=== PATIENT | male | born 1950 | race Caucasian/White ===

== ENCOUNTER 2018-01-05 00:13 | Observation (INO) | payer OTHER, MEDICARE, BC ==
[~2018-01-05] VITALS: Ht 177.8 cm; Wt 115.0 kg
[2018-01-05] MEDS ORDERED: normal saline 1000ML IV soln IVB ONE (01:45)
[2018-01-05 02:00] LABS: CLARITY,URINE Clear (Clear); COLOR,URINE Yellow (Yellow); GLUCOSE, URINE Negative (Neg); KETONES,URINE Negative (Neg); LEUKOCYTE ESTERASE ,URINE Negative (Neg); NITRITES, URINE Negative (Neg); OCCULT BLOOD,URINE Negative (Neg); PROTEIN,URINE Negative (Neg)
[2018-01-05 02:02] LABS: UA COLLECTION TYPE CLN CATCH MIDSTREAM
[2018-01-05] MEDS ORDERED: DABI150C PO (02:04)
[2018-01-05] MEDS ORDERED: METF500T PO (02:04)
[2018-01-05 02:07] LABS: BASOPHILS % (AUTO) 0.3 % (0-1); EOSINOPHILS # (AUTO) 0.1 X10'3 (0-0.9); EOSINOPHILS % (AUTO) 1.4 % (0-6); HEMATOCRIT 37.4 % (42.0-52.0); HEMOGLOBIN 12.5 g/dl (14.0-17.9); LYMPHOCYTES # (AUTO) 1.1 X10'3 (1.1-4.8); LYMPHOCYTES % (AUTO) 15.2 % (21-51); MEAN CORPUSCULAR HEMOGLOBIN 31.7 PG (27.0-31.0); MEAN CORPUSCULAR HGB CONC 33.4 % (33.0-36.5); MEAN CORPUSCULAR VOLUME 94.9 FL (78-98); MEAN PLATELET VOLUME 7.1 FL (7.4-10.4); MONOCYTES # (AUTO) 0.9 X10'3 (0-0.9); NEUTROPHILS # (AUTO) 5.1 X10'3 (1.8-7.7); NEUTROPHILS % (AUTO) 70.1 % (42-75); PLATELET COUNT 180 X10'3 (140-440); RED BLOOD COUNT 3.94 X10'6 (4.70-6.10); RED CELL DISTRIBUTION WIDTH 14.1 % (11.5-14.5); WHITE BLOOD COUNT 7.3 X10'3 (4.5-11.0)
[2018-01-05] MEDS ORDERED: POTA20TA19 PO (02:08)
[2018-01-05 02:09] LABS: URINE AMPHETAMINE SCREEN NEGATIVE (Neg); URINE BARBITUATE SCREEN NEGATIVE (Neg); URINE BENZODIAZEPINES SCREEN POSITIVE (Neg); URINE CANNABINOID SCREEN NEGATIVE (Neg); URINE COCAINE SCREEN NEGATIVE (Neg); URINE METHADONE SCREEN NEGATIVE (Neg); URINE OPIATE SCREEN POSITIVE (Neg); URINE PHENCYCLIDINE SCREEN NEGATIVE (Neg)
[2018-01-05] MEDS ORDERED: SULF500T59 PO (02:09)
[2018-01-05] MEDS ORDERED: OMEP40CA37 PO (02:10)
[2018-01-05 02:11] LABS: ABG BASE EXCESS 1.8 mmol/L (-2.0-3.0); ABG HCO3 27.7 mmol/L (22.0-26.0); ABG PCO2 (T) 48.2 mmHg (35.0-48.0); ABG PH (T) 7.376 (7.350-7.450); ABG PO2 (T) 81.1 mmHg (83-108); ALLEN'S TEST Positive; FCOHb 1.2 % (0.5-1.5); FLOW 2 L/min; FMetHb 0.3 % (0.3-1.12); FO2Hb 93.6 % (94-100); PATIENT TEMPERATURE 36.9; RESPIRATORY RATE (OBSERVED) 14 b/min; TOTAL HEMOGLOBIN 13.2 G/dl (14.0-18.0)
[2018-01-05] MEDS ORDERED: BUPR150T8 PO (02:11)
[2018-01-05] MEDS ORDERED: GABA-532 PO (02:11)
[2018-01-05] MEDS ORDERED: CARV25TA2 PO (02:12)
[2018-01-05] MEDS ORDERED: SPIR25TA3 PO (02:13)
[2018-01-05] MEDS ORDERED: ATOR10TA87 PO (02:14)
[2018-01-05] MEDS ORDERED: LOSA50TA3 PO (02:14)
[2018-01-05] MEDS ORDERED: FINA5TAB11 PO (02:15)
[2018-01-05] MEDS ORDERED: ZOLP10TA PO (02:16)
[2018-01-05] MEDS ORDERED: FLO0.4C PO (02:16)
[2018-01-05] MEDS ORDERED: SERT25TA PO (02:17)
[2018-01-05 02:18] LABS: INR 1.2 INR; PARTIAL THROMBOPLASTIN TIME 31 SECONDS (22-32)
[2018-01-05] MEDS ORDERED: SYN0.088T PO (02:19)
[2018-01-05] MEDS ORDERED: VITA400C65 (02:20)
[2018-01-05] MEDS ORDERED: CHOL100046 PO (02:22)
[2018-01-05] MEDS ORDERED: METH500T6 PO (02:25)
[2018-01-05 02:29] LABS: ACETAMINOPHEN < 2.0 UG/ML (10-30); ALANINE AMINOTRANSFERASE 39 U/L (12-78); ALBUMIN 3.6 G/DL (3.4-5.0); ALKALINE PHOSPHATASE 64 IU/L (46-116); ANION GAP 6 (8-16); ASPARTATE AMINO TRANSFERASE 41 U/L (10-37); BILIRUBIN,TOTAL 0.4 MG/DL (0.1-1.0); BLOOD UREA NITROGEN 21 MG/DL (7-18); BUN/CREATININE RATIO 17.6 (5.4-32.0); CHLORIDE 106 MMOL/L (99-107); CREATININE 1.19 MG/DL (0.60-1.10); ETHANOL < 0.010 GM/DL (0.0-0.010); GLUCOSE 117 MG/DL (70-104); MAGNESIUM 1.7 MG/DL (1.5-2.4); POTASSIUM 4.8 MMOL/L (3.5-5.1); SODIUM 142 MMOL/L (135-145); TOTAL PROTEIN 7.1 G/DL (6.4-8.2); eGFR 61 ML/MIN
[2018-01-05] MEDS ORDERED: HYDR-565 PO (02:30)
[2018-01-05] MEDS ORDERED: ondansetron/PF 4mg/2ml inj IV PRN (04:20)
[2018-01-05] MEDS ORDERED: acetaminophen 325mg tablet PO PRN ×2 (04:20)
[2018-01-05 05:12] LABS: CREATININE 1.02 MG/DL (0.60-1.10); POTASSIUM 4.4 MMOL/L (3.5-5.1); eGFR 73 ML/MIN
[2018-01-05] MEDS: levoTHYROXINE 88mcg tablet PO SCH (07:58)
[2018-01-05] MEDS: gabapentin 300mg capsule PO SCH ×3 (07:59→20:32)
[2018-01-05] MEDS: pantoprazole 40mg Tablet.DR PO SCH (07:59)
[2018-01-05] MEDS: sertraline 50mg tablet PO SCH (07:59)
[2018-01-05] MEDS: carVEDilol 12.5mg tablet PO SCH ×2 (08:00→19:39)
[2018-01-05] MEDS: furosemide 10 MG/1 ML 10ml inj IV SCH (08:01)
[2018-01-05] MEDS: dabigatran 150mg capsule PO SCH ×2 (09:08→19:41)
[2018-01-05] MEDS: spironolactone 25 MG tablet PO SCH ×2 (09:08→19:40)
[2018-01-05] MEDS: HYDROcodone/acetaminophen 5mg/325mg tablet PO PRN ×2 (13:03→19:40)
[2018-01-05 18:48] VITALS: BP 156/67
[2018-01-05] MEDS: sulfaSALAZINE 500 MG tablet PO SCH (19:40)
[2018-01-05] MEDS: losartan 50mg tablet PO SCH (20:33)
[2018-01-05] MEDS: atorvastatin 10mg tablet PO SCH (20:33)
[2018-01-05] MEDS: tamsulosin 0.4mg capsule PO SCH (20:33)
[2018-01-05] MEDS: finasteride 5mg tablet PO SCH (20:34)
[2018-01-05] MEDS ORDERED: metFORMIN 500mg tablet PO SCH (21:00)
[2018-01-05 22:04] VITALS: BP 154/79
[2018-01-06 06:10] LABS: BASOPHILS % (AUTO) 0.5 % (0-1); EOSINOPHILS # (AUTO) 0.1 X10'3 (0-0.9); EOSINOPHILS % (AUTO) 2.5 % (0-6); HEMATOCRIT 33.4 % (42.0-52.0); HEMOGLOBIN 11.8 g/dl (14.0-17.9); LYMPHOCYTES # (AUTO) 1.2 X10'3 (1.1-4.8); MEAN CORPUSCULAR HEMOGLOBIN 32.9 PG (27.0-31.0); MEAN CORPUSCULAR HGB CONC 35.5 % (33.0-36.5); MEAN CORPUSCULAR VOLUME 92.8 FL (78-98); MEAN PLATELET VOLUME 6.8 FL (7.4-10.4); MONOCYTES # (AUTO) 0.8 X10'3 (0-0.9); MONOCYTES % (AUTO) 15.4 % (2-12); NEUTROPHILS # (AUTO) 3.2 X10'3 (1.8-7.7); NEUTROPHILS % (AUTO) 59.6 % (42-75); PLATELET COUNT 143 X10'3 (140-440); RED BLOOD COUNT 3.59 X10'6 (4.70-6.10); RED CELL DISTRIBUTION WIDTH 14.2 % (11.5-14.5); WHITE BLOOD COUNT 5.4 X10'3 (4.5-11.0)
[2018-01-06 06:21] LABS: ALBUMIN 3.2 G/DL (3.4-5.0); ANION GAP 8 (8-16); BLOOD UREA NITROGEN 18 MG/DL (7-18); BUN/CREATININE RATIO 17.3 (5.4-32.0); CALCIUM 9.2 MG/DL (8.5-10.1); CHLORIDE 105 MMOL/L (99-107); CREATININE 1.04 MG/DL (0.60-1.10); GLUCOSE 120 MG/DL (70-104); POTASSIUM 3.7 MMOL/L (3.5-5.1); SODIUM 143 MMOL/L (135-145); TOTAL CARBON DIOXIDE 30.4 MMOL/L (24-32); eGFR 71 ML/MIN
[2018-01-06 07:00] VITALS: BP 133/72
[2018-01-06] MEDS: pantoprazole 40mg Tablet.DR PO SCH (07:23)
[2018-01-06] MEDS: levoTHYROXINE 88mcg tablet PO SCH (07:23)
[2018-01-06] MEDS: HYDROcodone/acetaminophen 5mg/325mg tablet PO PRN ×2 (07:25→12:24)
[2018-01-06] MEDS: sertraline 50mg tablet PO SCH (09:10)
[2018-01-06] MEDS: spironolactone 25 MG tablet PO SCH ×2 (09:10→20:01)
[2018-01-06] MEDS: dabigatran 150mg capsule PO SCH ×2 (09:10→20:00)
[2018-01-06] MEDS: sulfaSALAZINE 500 MG tablet PO SCH ×2 (09:10→20:01)
[2018-01-06] MEDS: carVEDilol 12.5mg tablet PO SCH ×2 (09:10→20:01)
[2018-01-06] MEDS: gabapentin 300mg capsule PO SCH ×3 (09:10→20:00)
[2018-01-06] MEDS: furosemide 10 MG/1 ML 10ml inj IV SCH (09:11)
[2018-01-06 11:00] VITALS: BP 149/79
[2018-01-06] MEDS ORDERED: glucagon, human recombinant 1mg kit SUBCUT PRN (15:35)
[2018-01-06] MEDS ORDERED: dextrose 50%-water 50ml dispensing syringe IV PRN ×2 (15:35)
[2018-01-06] MEDS ORDERED: insulin Lispro (HumaLOG) vial - multi-dose SQ SCH (15:35)
[2018-01-06] MEDS ORDERED: dextrose ORAL solution 15 GM/59 ML bottle PO PRN ×2 (15:35)
[2018-01-06] MEDS ORDERED: MESSAGE TO PHARMACY PO ONE (15:35)
[2018-01-06 18:00] VITALS: BP 153/74
[2018-01-06] MEDS: tamsulosin 0.4mg capsule PO SCH (20:00)
[2018-01-06] MEDS: finasteride 5mg tablet PO SCH (20:00)
[2018-01-06] MEDS: atorvastatin 10mg tablet PO SCH (20:00)
[2018-01-06] MEDS: losartan 50mg tablet PO SCH ×2 (20:04→20:33)
[2018-01-06] MEDS ORDERED: insulin glargine (Lantus) pen - multi-dose SQ SCH (21:00)
[2018-01-06 22:00] VITALS: BP 190/99
[2018-01-07 02:41] VITALS: BP 155/78
[2018-01-07 06:00] VITALS: BP 148/81
[2018-01-07 07:03] LABS: BASOPHILS % (AUTO) 0.1 % (0-1); EOSINOPHILS # (AUTO) 0.1 X10'3 (0-0.9); EOSINOPHILS % (AUTO) 0.8 % (0-6); HEMATOCRIT 38.4 % (42.0-52.0); HEMOGLOBIN 13.3 g/dl (14.0-17.9); LYMPHOCYTES # (AUTO) 1.2 X10'3 (1.1-4.8); LYMPHOCYTES % (AUTO) 13.8 % (21-51); MEAN CORPUSCULAR HGB CONC 34.8 % (33.0-36.5); MEAN PLATELET VOLUME 7.3 FL (7.4-10.4); MONOCYTES % (AUTO) 11.2 % (2-12); NEUTROPHILS # (AUTO) 6.4 X10'3 (1.8-7.7); NEUTROPHILS % (AUTO) 74.1 % (42-75); PLATELET COUNT 160 X10'3 (140-440); RED BLOOD COUNT 4.04 X10'6 (4.70-6.10); RED CELL DISTRIBUTION WIDTH 13.8 % (11.5-14.5); WHITE BLOOD COUNT 8.7 X10'3 (4.5-11.0)
[2018-01-07 07:16] LABS: ALBUMIN 3.6 G/DL (3.4-5.0); ANION GAP 11 (8-16); BLOOD UREA NITROGEN 18 MG/DL (7-18); BUN/CREATININE RATIO 15.9 (5.4-32.0); CHLORIDE 105 MMOL/L (99-107); CREATININE 1.13 MG/DL (0.60-1.10); GLUCOSE 133 MG/DL (70-104); POTASSIUM 3.5 MMOL/L (3.5-5.1); SODIUM 143 MMOL/L (135-145); TOTAL CARBON DIOXIDE 27.1 MMOL/L (24-32); eGFR 65 ML/MIN
[2018-01-07] MEDS: pantoprazole 40mg Tablet.DR PO SCH (07:57)
[2018-01-07] MEDS: HYDROcodone/acetaminophen 5mg/325mg tablet PO PRN ×2 (07:57→13:08)
[2018-01-07] MEDS: levoTHYROXINE 88mcg tablet PO SCH (07:57)
[2018-01-07] MEDS: gabapentin 300mg capsule PO SCH ×2 (09:04→13:07)
[2018-01-07] MEDS: sertraline 50mg tablet PO SCH (09:04)
[2018-01-07] MEDS: spironolactone 25 MG tablet PO SCH (09:05)
[2018-01-07] MEDS: sulfaSALAZINE 500 MG tablet PO SCH (09:05)
[2018-01-07] MEDS: dabigatran 150mg capsule PO SCH (09:05)
[2018-01-07] MEDS: carVEDilol 12.5mg tablet PO SCH (09:05)
[2018-01-07] MEDS: furosemide 10 MG/1 ML 10ml inj IV SCH (09:11)
[2018-01-07 10:00] VITALS: BP 150/85
== END 2018-01-07 16:20 | disposition home or self-care (01) ==
LOC: ER 00:14 → ED HOLD 04:18 → EDBEDREQ 18:23 → ORTHO 4S 18:45
PROVIDERS: ADMIT Family Medicine; ATTEND Emergency Medicine
DX: R53.83 Other fatigue (principal); R41.82 Altered mental status, unspecified; M54.5 Low back pain; E11.9 Type 2 diabetes mellitus without complications; E78.5 Hyperlipidemia, unspecified; G47.30 Sleep apnea, unspecified; I10 Essential (primary) hypertension; I48.91 Unspecified atrial fibrillation; M06.9 Rheumatoid arthritis, unspecified; G89.29 Other chronic pain; G93.40 Encephalopathy, unspecified; Z80.8 Family history of malignant neoplasm of other organs or systems; Z79.4 Long term (current) use of insulin
CPT/HCPCS: 36415; 36600; 70450; 71045; 72131; 74176; 80048; 80053; 80305; 80320; 80329; 81003; 82140; 82565; 82803; 82948; 83036; 83735; 83880; 84132; 84443; 84484; 85018; 85025; 85610; 85730; 87070; 93005; 93306; 96374; 96376; 97110; 97116; 97162; 99285; A6255; G0378; J1815; J1940

== ENCOUNTER 2022-06-16 10:39 | Emergency (ER) | payer OTHER, MEDICARE, BC ==
[~2022-06-16] VITALS: Ht 177.8 cm; Wt 104.5 kg
[~2022-06-16 10:39] MED LIST: AMYL1CAP54 PO; ARA20T PO; ATOR20TA PO; BUPR150T8 PO; CARV-50 PO; CHOL100046 PO; CYAN-51 PO; DABI150C PO; FENO145T26 PO; FINA5TAB11 PO; GABA300C PO; HYDR-4353 PO; LEVO100T9 PO; LEVO750T68 PO; LOSA50TA64 PO; PANT40TA54 PO; POTA-207 PO; SERT25TA PO; SPIR25TA5 PO; VITA-134 PO; ZOLP10TA PO
--- NOTE | 2022-06-16 10:45 | NUR ---
DR SQUIRES MADE AWARE PATIENT FALL ON THINNERS WITH NO HEAD STRIKE, PER PAT NOT CONSIDERED A LEVEL 2 TRAUMA ALERT, DEEP SIBLEY MADE AWARE.
[2022-06-16 14:11] LABS: CLARITY,URINE SLIGHTLY CLOUDY (Clear); COLOR,URINE YELLOW (Yellow); GLUCOSE, URINE NEGATIVE (Neg); KETONES,URINE NEGATIVE (Neg); LEUKOCYTE ESTERASE ,URINE NEGATIVE (Neg); NITRITES, URINE NEGATIVE (Neg); OCCULT BLOOD,URINE NEGATIVE (Neg); PH,URINE 5.5 (4.8-8.0); PROTEIN,URINE NEGATIVE (Neg); UROBILINOGEN,URINE 0.2 E.U/dL (0.2-1.0)
[2022-06-16 14:12] LABS: UA COLLECTION TYPE URINAL
[2022-06-16 14:14] LABS: BASOPHILS # (AUTO) 0.1 X10'3 (0-0.2); BASOPHILS % (AUTO) 1.6 % (0-1); EOSINOPHILS # (AUTO) 0.1 X10'3 (0-0.9); EOSINOPHILS % (AUTO) 1.7 % (0-6); HEMATOCRIT 32.6 % (42.0-52.0); HEMOGLOBIN 11.2 g/dl (14.0-17.9); LYMPHOCYTES # (AUTO) 0.8 X10'3 (1.1-4.8); LYMPHOCYTES % (AUTO) 10.3 % (21-51); MEAN CORPUSCULAR HEMOGLOBIN 32.5 PG (27.0-31.0); MEAN CORPUSCULAR HGB CONC 34.2 g/dL (33.0-36.5); MEAN PLATELET VOLUME 7.3 FL (7.4-10.4); MONOCYTES # (AUTO) 0.9 X10'3 (0-0.9); MONOCYTES % (AUTO) 11.8 % (2-12); NEUTROPHILS # (AUTO) 5.8 X10'3 (1.8-7.7); NEUTROPHILS % (AUTO) 74.6 % (42-75); PLATELET COUNT 125 X10'3 (140-440); RED BLOOD COUNT 3.43 X10'6 (4.70-6.10); WHITE BLOOD COUNT 7.7 X10'3 (4.5-11.0)
[2022-06-16 14:16] LABS: HYALINE CASTS >30 /LPF (NEGATIVE); SQUAMOUS EPITHELIAL CELL,UR MANY /LPF (FEW)
[2022-06-16 14:17] LABS: TRANSITIONAL EPI CELLS,URINE FEW /HPF
[2022-06-16 14:18] LABS: CAL OXALATE CRYSTALS 1+ /HPF (NEGATIVE); RBC,URINE 0-2 /HPF (0-2)
[2022-06-16 14:19] LABS: AMORPHOUS URATES 1+; BACTERIA,URINE 1+ /HPF (Neg); WBC,URINE 0-4 /HPF (0-4)
[2022-06-16 14:31] LABS: ALANINE AMINOTRANSFERASE 29 U/L (12-78); ALBUMIN 3.5 G/DL (3.4-5.0); ALBUMIN/GLOBULIN RATIO 1.1 (1.1-1.5); ALKALINE PHOSPHATASE 45 IU/L (46-116); ANION GAP 9 (8-16); ASPARTATE AMINO TRANSFERASE 26 U/L (10-37); BILIRUBIN,TOTAL 0.5 MG/DL (0.1-1.0); BLOOD UREA NITROGEN 26 MG/DL (7-18); BUN/CREATININE RATIO 20.5 (5.4-32.0); CALCIUM 8.8 MG/DL (8.5-10.1); CHLORIDE 109 MMOL/L (99-107); CREATININE 1.27 MG/DL (0.60-1.10); GLUCOSE 104 MG/DL (70-104); POTASSIUM 4.5 MMOL/L (3.5-5.1); SODIUM 145 MMOL/L (135-145); TOTAL CARBON DIOXIDE 27.3 MMOL/L (24-32); TOTAL PROTEIN 6.7 G/DL (6.4-8.2); eGFR 56 ML/MIN
[2022-06-16 14:35] LABS: ETHANOL < 0.010 GM/DL (0.0-0.010)
[2022-06-16] MEDS ORDERED: morphine 4 MG/ML inj SYRINge IV ONE (15:30)
[2022-06-16] MEDS ORDERED: ketorolac trometh. 30mg/ml inj. IV ONE (15:30)
[2022-06-16 15:37] VITALS: BP 145/73
== END 2022-06-16 15:38 | disposition home or self-care (01) ==
LOC: ER 10:40
DX: S50.11XA Contusion of right forearm, initial encounter (principal); S50.311A Abrasion of right elbow, initial encounter; R53.1 Weakness; G89.29 Other chronic pain; M54.9 Dorsalgia, unspecified; E11.9 Type 2 diabetes mellitus without complications; Z88.6 Allergy status to analgesic agent; Z79.899 Other long term (current) drug therapy; Z79.2 Long term (current) use of antibiotics; W18.39XA Other fall on same level, initial encounter; Y93.89 Activity, other specified; Y92.89 Other specified places as the place of occurrence of the external cause; Y99.8 Other external cause status
CPT/HCPCS: 36415; 70450; 71045; 72131; 80053; 80320; 81001; 84484; 85025; 93005; 96374; 96375; 99285; J1885; J2270

== ENCOUNTER → 2023-07-09 | Outpatient (CLI) | payer OTHER ==
[~2023-07-09] MED LIST changes: +CYAN-104 PO; -CYAN-51 PO; -VITA-134 PO; +VITA-288 PO
== END | disposition home or self-care (01) ==
LOC: CARD DIAG 12:17
PROVIDERS: ATTEND Chiropractor
DX: I08.0 Rheumatic disorders of both mitral and aortic valves (principal); I49.3 Ventricular premature depolarization; I48.91 Unspecified atrial fibrillation; R60.9 Edema, unspecified
CPT/HCPCS: 93005; 93308

== ENCOUNTER 2025-05-01 14:18 | Inpatient (IN) | payer OTHER, MEDICARE ==
[~2025-05-01] VITALS: Ht 177.8 cm; Wt 81.8 kg
[~2025-05-01 14:18] MED LIST changes: +ZOLP-679 PO; -ZOLP10TA PO
--- NOTE | 2025-05-01 14:33 | ELECTROCARDIOGRAPH REPORT ---
[facility] Test Date: 2025-05-01 Test Time: 14:31:08 Pat Name: SAMY MURILLO Department: [facility]- Patient ID: [id number] Room: Gender: M Project Coordinator: : 1950 Requested By: KARINA GARLAND Order Number: [id number] Reading MD: Measurements Intervals [place] Rate: 97 P: 0 ND: 0 QRS: 1 QRSD: 94 T: 46 QT: 379 QTc: 482 Interpretive Statements Atrial flutter Inferior infarct, acute (LCx) ST elevation, consider anterior injury Lateral leads are also involved Baseline wander in lead(s) V4 Please click the below link to view image of tracing.
[2025-05-01 14:39] LABS: MEAN PLATELET VOLUME 7.6 FL (7.4-10.4); RED CELL DISTRIBUTION WIDTH 15.7 % (11.5-14.5)
[2025-05-01 15:00] LABS: CREATININE 1.00 MG/DL (0.60-1.10); PRO BRAIN NATRIURETIC PEPTIDE 359 PG/ML (0-450); TOTAL CARBON DIOXIDE 30.2 MMOL/L (24-32); eCRCL 62 ML/MIN; eGFR 73 ML/MIN
--- NOTE | 2025-05-01 15:00 | RADIOLOGY REPORT ---
EXAM: DI CHEST,SINGLE VIEW Indication: CP Technique: Single frontal view of the chest was obtained Comparison: CHEST,SINGLE VIEW on DOS: 06/16/22 FINDINGS: Lines and Tubes: None Lungs: No focal consolidation. Pleura: No effusion. No pneumothorax. Cardiomediastinal contours: Unremarkable Bones: No acute osseous abnormality. IMPRESSION: No acute cardiopulmonary disease.
[2025-05-01 15:54] LABS: EOSINOPHILS % (MANUAL) 1.0 % (0-6); LYMPHOCYTES % (MANUAL) 14.0 % (21-51); MONOCYTES % (MANUAL) 15.0 % (2-12); NEUTROPHILS % (MANUAL) 70.0 % (42-75)
[2025-05-01 15:55] LABS: PLATELET ESTIMATE DECREASED
--- NOTE | 2025-05-01 16:09 | Physician Documentation ---
History of Present Illness ~ Chief Complaint: Chest Pain Stated Complaint: CHEST TIGHTNESS Time Seen by MD: 15:34 Primary Medical Doctor: Dr. Contreras Mode of Arrival: POV HPI This is a 74-year-old male with a past medical history of diabetes mellitus type 2, hypertension and atrial fibrillation presenting with chest pain that started earlier today. He states that happened while he was in bed and suddenly came on. It is substernal and does not radiate. He states that initially was about 8/10 on intensity but has now improved to about a 4/10. Additionally states that he has been very weak over the past couple of days. His daughter states that he has gradually grown weaker and lethargic. Patient was recently hospitalized at [facility] for atrial fibrillation. Medication Reconciliation Allergies: Coded Allergies: cephalexin (Verified Allergy, Unknown, HALLUCINATES, 05/01/25) Scheduled Apixaban (Eliquis), 5 MG PO BID Atorvastatin Calcium (Atorvastatin Calcium), 20 MG PO DAILY Bupropion Hcl (Bupropion Hcl Sr), 1 TAB PO Q12H Carvedilol (Carvedilol), 1 TAB PO Q12H Cholecalciferol (Vitamin D), 1 CAP PO DAILY Cyanocobalamin (Vitamin B-12) (B-12), 1 TAB PO DAILY Finasteride (Finasteride), 1 TAB PO DAILY Gabapentin (Neurontin), 1 CAP PO Q8H Leflunomide (Leflunomide), 1 TAB PO DAILY Levofloxacin (Levofloxacin), 750 MG PO DAILY Levothyroxine Sodium (Levothyroxine Sodium), 100 MCG PO DAILY Losartan Potassium (Losartan Potassium), 50 MG PO DAILY Pantoprazole Sodium (Pantoprazole Sodium), 40 MG PO BID Potassium Chloride* (K-Dur*), 1 TAB PO DAILY Sertraline HCl (Sertraline HCl), 1 TAB PO DAILY Spironolactone (Spironolactone), 25 MG PO DAILY Sucralfate (Sucralfate), 1 TAB PO Q8H Scheduled PRN Zolpidem Tartrate (Ambien), 1 TAB PO HSPRN PRN for sleep Discontinued Medications Atorvastatin Calcium* (Lipitor*), 1 TABLET PO HS, (Reported) Discontinued Reason: Prescription changed Carvedilol (Carvedilol), 25 MG PO BIDBD Discontinued Reason: Prescription changed Dabigatran (PRADAXA capsule), 1 CAP PO Q12H, (Reported) Discontinued Reason: Prescription changed Levofloxacin (Levofloxacin), 750 MG PO DAILY@11 Discontinued Reason: Prescription changed Losartan Potassium (Losartan Potassium), 50 MG PO HS Discontinued Reason: Prescription changed Pantoprazole Sodium (Pantoprazole Sodium), 40 MG PO BID Discontinued Reason: Prescription changed Spironolactone (Spironolactone), 1 TAB PO BID, (Reported) Discontinued Reason: Prescription changed Past Medical History Past Medical History: Diabetes, Chronic Back Pain, Rheumatoid Arthritis Past Surgical History: orthopedic surgeries Alcohol Use: None Drug Use: none Lives In: Home Physical Exam Vital Signs: Temperature: 97.8, Source: Temporal, Heart Rate: 60, Respiratory Rate: 18, BP: 144/77, Pulse Oximetry: 97, Weight: 81.820 Physical Exam I have reviewed the triage vitals. CONST: Well developed and well nourished. In no acute distress HENT: Head Atraumatic EYES: Pupils are equal, round and reactive to light. Normal conjunctiva NECK: Normal range of motion. Supple. CARDIO: Normal rate and regular rhythm. No murmurs, rubs, or gallops. S1, S2. PULM/CHEST: No respiratory distress. Lungs clear to auscultation. No wheeze ABD: Soft and nontender. Nondistended. Bowel sounds normal. No guarding. : Exam deferred MSK: No edema. No deformity. NEURO: Alert and oriented to person, place and time. Moving all extremities SKIN: Warm and dry. PSYCH: Normal mood and affect. Good eye contact. Progress Results/Orders Results/Orders Orders - MARLYS [place] MD Culture Blood (05/01/25 15:56) Page Hospitalist (05/01/25 17:28) Fill Out Med Reconciliation (05/01/25 17:28) Completed Orders - MARLYS [place] MD Lacticsepsis (05/01/25 15:56) Pt Inr (05/01/25 15:56) PTT (05/01/25 15:56) Morphine 4mg/Ml Inj. (Morphine Inj.) (05/01/25 16:00) Ondansetron Inj. (Zofran 4mg/2ml Vial) (05/01/25 16:00) Piperacillin/Tazo 3.375gm/50ml (Zosyn 3. (05/01/25 16:55) Normal Saline 1000ml (0.9% Sodium Chlori (05/01/25 17:00) Lactic,2hr (05/01/25 17:49) Ua W/Microscopic, Cult If Ind (05/01/25 18:35) Vital Signs 05/01/25 05/01/25 05/01/25 14:23 16:55 16:59 Temp 97.8 Pulse 60 79 Resp 18 18 18 B/P (MAP) 144/77 128/79 (95) Pulse Ox 97 95 Laboratory Tests Test 05/01/25 14:31 05/01/25 16:24 05/01/25 17:20 05/01/25 17:57 White Blood Count 12.0 H Red Blood Count 4.19 L Hemoglobin 13.6 L Hematocrit 40.2 L Mean Corpuscular Volume 96.0 Mean Corpuscular Hemoglobin 32.6 H Mean Corpuscular Hemoglobin Concent 33.9 Red Cell Distribution Width 15.7 H Platelet Count 121 L Mean Platelet Volume 7.6 Neutrophils (%) (Auto) 71.8 Lymphocytes (%) (Auto) 10.6 L Monocytes (%) (Auto) 16.5 H Eosinophils (%) (Auto) 0.7 Basophils (%) (Auto) 0.4 Neutrophils # (Auto) 8.6 H Lymphocytes # (Auto) 1.3 Monocytes # (Auto) 2.0 H Eosinophils # (Auto) 0.1 Basophils # (Auto) 0.1 CBC Comment Differential Total Cells Counted 100 Neutrophils % (Manual) 70.0 Lymphocytes % (Manual) 14.0 L Monocytes % (Manual) 15.0 H Eosinophils % (Manual) 1.0 Platelet Estimate Decreased Red Blood Cell Morphology Normal Basophilic Stippling Macrocytosis 1+ Prothrombin Time 11.9 INR International Normalized Ratio 1.2 Activated Partial Thromboplast Time 27 Coagulation Comments Sodium Level 140 Potassium Level 3.5 Chloride Level 102 Carbon Dioxide Level 30.2 Anion Gap 8 Blood Urea Nitrogen 17 Creatinine 1.00 Estimated GFR/1.73 m2 73 BUN/Creatinine Ratio 17.0 Glucose Level 85 Hemoglobin A1c 4.7 Lactic Acid Level 2.4 H 1.4 Calcium Level 9.3 Troponin I High Sensitivity 8 8 8 Pro-B-Type Natriuretic Peptide 359 Albumin 3.7 Chemistry Comments Troponin I High Sens Percent Delta 0 0 Troponin I Hi Sens Absolute Change 0 0 Microbiology Date/Time Source Procedure Growth Status 05/01/25 16:50 Blood Blood Culture - Preliminary NO GROWTH AFTER 2 DAYS Resulted EKG/XRAY/CT/US/VASC/MRI EKG : Additional Comment EKG as interpreted by ED MD indicating atrial flutter with a rate of 97 beats per minute, no ischemia Chest X-Ray : Additional Comments EXAM: DI CHEST,SINGLE VIEW Indication: CP Technique: Single frontal view of the chest was obtained Comparison: CHEST,SINGLE VIEW on DOS: 06/16/22 FINDINGS: Lines and Tubes: None Lungs: No focal consolidation. Pleura: No effusion. No pneumothorax. Cardiomediastinal contours: Unremarkable Bones: No acute osseous abnormality. IMPRESSION: No acute cardiopulmonary disease. Medical Decision Making Additional Information 74-year-old male presenting initially with chest pain and generalized weakness. His lab workup indicates that he has not elevated lactic acid level of 2.4. His EKG shows atrial flutter with no ischemic changes. Troponins were negative x3. Chest x-ray was clear. Patient however is clearly septic likely from a urinary tract infection. Departure Disposition: 09 ADMITTED INPATIENT Admitted to Inpatient Unit: to hospitalist Admission Level of Care: Med/Surg with Tele Impression: Primary Impression: Sepsis Additional Impressions: Chest pain Urinary tract infection Referrals: NO PRIMARY CARE PROVIDER (PCP) Prescriptions Zolpidem Tartrate (Ambien) 10 Mg Tablet 1 TAB PO HSPRN PRN for sleep for 30 Days, #30 TAB 0 Refills Prov: FERNANDEZ STALEY, RES 05/03/25 Sucralfate (Sucralfate) 1 Gram Tablet 1 TAB PO Q8H for 30 Days, #90 TAB 0 Refills Prov: FERNANDEZ STALEY, RES 05/03/25 Spironolactone (Spironolactone) 25 Mg Tablet 25 MG PO DAILY, #30 TAB Prov: FERNANDEZ STALEY, RES 05/03/25 Sertraline HCl (Sertraline HCl) 25 Mg Tablet 1 TAB PO DAILY for 30 Days, #30 TAB 0 Refills Prov: FERNANDEZ STALEY, RES 05/03/25 Potassium Chloride* (K-Dur*) 20 Meq Tab.prt.sr 1 TAB PO DAILY for 30 Days, #30 TAB Prov: MARLENY STALEYS, RES 05/03/25 Pantoprazole Sodium (Pantoprazole Sodium) 40 Mg Tablet.dr 40 MG PO BID for 30 Days, #60 TAB.SR Prov: LUÍSFERNANDEZ, RES 05/03/25 Losartan Potassium (Losartan Potassium) 50 Mg Tablet 50 MG PO DAILY for 30 Days, #30 TAB Prov: NEGRITAFERNANDEZ JOINER, RES 05/03/25 Levothyroxine Sodium (Levothyroxine Sodium) 125 Mcg Tablet 100 MCG PO DAILY for 30 Days, #30 TAB Prov: LORENAFERNANDEZ VILLAVICENCIO, RES 05/03/25 Levofloxacin (Levofloxacin) 750 Mg Tablet 750 MG PO DAILY, #7 TAB Prov: LUÍSFERNANDEZ, RES 05/03/25 Leflunomide (Leflunomide) 20 Mg Tablet 1 TAB PO DAILY for 30 Days, #30 TAB Prov: LORENAFERNANDEZ VILLAVICENCIO, [facility] 05/03/25 Gabapentin (Neurontin) 300 Mg Capsule 1 CAP PO Q8H for 30 Days, #90 CAP 0 Refills Prov: NEGRITAFERNANDEZ JOINER, [facility] 05/03/25 Finasteride (Finasteride) 5 Mg Tablet 1 TAB PO DAILY for 30 Days, #30 TAB 0 Refills Prov: LUÍSFERNANDEZ, [facility] 05/03/25 Apixaban (ELIQUIS) 5 Mg Tablet 5 MG PO BID for 30 Days, #60 TAB Prov: LORENAFERNANDEZ VILLAVICENCIO, [facility] 05/03/25 Cyanocobalamin (Vitamin B-12) (B-12) 1,000 Mcg Tablet.er 1 TAB PO DAILY for 30 Days, #30 TAB 0 Refills Prov: NEGRITAFERNANDEZ JOINER, RES 05/03/25 Cholecalciferol (Vitamin D) 1,000 Unit Capsule 1 CAP PO DAILY for 30 Days, #30 CAP 0 Refills Prov: NEGRITAFERNANDEZ JOINER, RES 05/03/25 Carvedilol (Carvedilol) 12.5 Mg Tablet 1 TAB PO Q12H for 30 Days, #60 TAB 0 Refills Prov: FERNANDEZ STALEY, RES 05/03/25 Bupropion Hcl (BUPROPION HCL SR) 150 Mg Tablet.er 1 TAB PO Q12H for 30 Days, #60 TAB 0 Refills Prov: FERNANDEZ STALEY, VIKRAM 05/03/25 Atorvastatin Calcium (Atorvastatin Calcium) 20 Mg Tablet 20 MG PO DAILY for 30 Days, #30 TAB Prov: FERNANDEZ STALEY, VIKRAM 05/03/25 Signature Scribe Signature: 1 Attestation: 1 MARLYS [place] MD May 01, 2025 16:09
[2025-05-01] MEDS: ondansetron/PF 4mg/2ml inj IV ONE (16:55)
[2025-05-01] MEDS: morphine 4 MG/ML inj SYRINge IV ONE (16:59)
[2025-05-01] MEDS: normal saline 1000ml 1,000 ML IV ONE (17:10)
[2025-05-01] MEDS: piperacillin/tazo 3.375gm/50ml 50 ML IV ONE (17:13)
[2025-05-01 17:22] LABS: APTT 27 SECONDS (22-32); INR 1.2 INR
[2025-05-01 19:02] LABS: LEUKOCYTE ESTERASE ,URINE LARGE (Neg); NITRITES, URINE NEGATIVE (Neg); OCCULT BLOOD,URINE NEGATIVE (Neg)
[2025-05-01 19:06] LABS: UA COLLECTION TYPE URINAL
[2025-05-01] MEDS ORDERED: PERFLUTREN PROTEIN-A MICROSPHR (Optison) 0.22 MG/ML 3ML VIAL IV ONE (19:10)
[2025-05-01] MEDS ORDERED: magnesium Cl slow-release 64mg tablet PO PRN (19:10)
[2025-05-01] MEDS ORDERED: potassium Cl 20 mEq SR tablet PO PRN ×2 (19:10)
[2025-05-01] MEDS ORDERED: magnesium sulf-water 4G/100mL 100 ML IV PRN (19:10)
[2025-05-01] MEDS ORDERED: magnesium sulf-water 2g/50mL 50 ML IV PRN (19:10)
[2025-05-01] MEDS ORDERED: potassium Cl 40MEQ/1/2NS 520ml 520 ML IV PRN (19:10)
[2025-05-01] MEDS ORDERED: ondansetron/PF 4mg/2ml inj IV PRN (19:10)
[2025-05-01 19:11] LABS: MUCUS STRANDS FEW /LPF (Neg); SQUAMOUS EPITHELIAL CELL,UR MODERATE /LPF (FEW)
[2025-05-01] MEDS ORDERED: metoprolol tartrate 1mg/ml inj IV PRN (19:20)
[2025-05-01] MEDS ORDERED: aminophylline 250mg/10ml inj. IV PRN (19:20)
--- NOTE | 2025-05-01 19:34 | HISTORY AND PHYSICAL-Residence ---
History & Physical Providers to CC Resident Creating Document: NEGRITAMARISELFERNANDEZ, VIKRAM ~ History of Present Illness Primary Medical Doctor: Dr. Contreras Reason for Admit\Complaint: Chest pain History of Present Illness Patient is a 74 year-old male with past medical history of diabetes, hypertension, high lipid levels, hypothyroidism, depression ,history of AFib, bladder cancer diagnosed in 2022 and on radiation therapy, BETZY, history of stroke. Came to the ER with a chief complaint of chest pain. Chest pain started yesterday at 9 pm while patient was lying down, described the pain as continuous, aggravated with deep breathing, no relieving factors. He graded the pain as 8/10, currently 5/10. He denied shortness of breath, palpitation, lightheadedness, leg swellings. He also denied fever, cough, nausea, vomiting. 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 Wise Allergies: Coded Allergies: cephalexin (Verified Adverse Reaction, Unknown, HALLUCINATES, 05/01/25) Home Medications Home Medications Active Pantoprazole Sodium 40 Mg Tablet.dr 40 Mg PO BID Losartan Potassium 50 Mg Tablet 50 Mg PO HS Carvedilol 12.5 Mg Tablet 25 Mg PO BIDBD Levofloxacin 750 Mg Tablet 750 Mg PO DAILY@11 Reported Leflunomide 20 Mg Tablet 1 Tab PO DAILY 30 Days Fenofibrate (Fenofibrate Nanocrystallized) 145 Mg Tablet 1 Tab PO HS 30 Days Vitamin B-12 (Cyanocobalamin) 1,000 Mcg Tablet 1 Tab PO DAILY 30 Days Mession 12,000 Units Capsule (Lipase/Protease/Amylase) 1 Each Capsule. 1 Cap PO TIDAC Levothyroxine Sodium 100 Mcg Tablet 1 Tab PO DAILY 30 Days Neurontin (Gabapentin) 300 Mg Capsule 2 Cap PO TID 30 Days Lipitor* (Atorvastatin Calcium) 20 Mg Tablet 1 Tablet PO HS [place] 10-325 Tablet (Acetaminophen/Hydrocodone Bitart) 1 Each Tablet 1 Tab PO QID PRN Vitamin D (Cholecalciferol (Vitamin D3)) 1,000 Unit Capsule 1 Cap PO DAILY Vitamin E (Vitamin E Mixed) 400 Unit Capsule 1 Cap PO DAILY Zoloft* (Sertraline HCl) 25 Mg Tablet 1 Tab PO DAILY Ambien (Zolpidem Tartrate) 10 Mg Tablet 1 Tab PO HS PROSCAR tablet (Finasteride) 5 Mg Tablet 5 Mg PO HS Spironolactone 25 Mg Tablet 1 Tab PO BID Wellbutrin SR* (Bupropion HCl) 150 Mg Tablet.sa 1 Tab PO Q12H LOOK-ALIKE SOUND-ALIKE DRUG buSPIRone & buPROPion K-Dur* (Potassium Chloride) 20 Meq Tab.prt.sr 1 Tab PO DAILY PRADAXA capsule (Dabigatran) 150 Mg Capsule 1 Cap PO Q12H 30 Days Past Medical History Past Medical History Diabetes Mellitus Hypertension AFib Hypothyroidism Depression Hyperlipidemia BETZY Bladder cancer currently having radiation therapy every 6 weeks. Stroke Past Surgical History Surgical History Comment Cholecystectomy, appendectomy, lumbar surgery, diskectomy Past Social History Social History Comment Quit smoking 48 years ago No history of alcohol use Currently lives with his daughter Smoking: Other (48 years ago) Alcohol Use: None Drug Use: None Lives with: Mother, Father, Spouse, Other (daughter) Lives In: Home ROS All Other Systems: Reviewed and Negative ROS As stated above in the HPI, otherwise all systems are reviewed and negative. Constitutional: Reports: weakness Eyes: Denies: no symptoms reported, see HPI, pain, discharge, blurred vision, double vision, itching, photophobia, redness, tearing, other ENT: Denies: no symptoms reported, see HPI, ear pain, ear bleeding, ear discharge, hearing loss, ear ringing, nose pain, nose bleeding, nose congestion, nose discharge, throat pain, throat swelling, voice change, mouth pain, mouth bleeding, mouth swelling, other Respiratory: Denies: no symptoms reported, see HPI, cough, orthopnea, shortness of breath, SOB with exertion, SOB at rest, stridor, wheezing, hemoptysis, pain with breathing, other Cardiovascular: Reports: chest pain Gastrointestinal: Denies: no symptoms reported, see HPI, abdomen distended, abdominal pain, nausea, vomiting, diarrhea, constipated, melena, hematemesis, hematochezia, rectal bleeding, rectal pain, dysphagia, poor appetite, poor fluid intake, other Genitourinary: Denies: no symptoms reported, see HPI, burning, discharge, dysuria, frequency, flank pain, hematuria, incontinence, pain, decreased urine output, urgency, other Neurological: Denies: no symptoms reported, see HPI, speech problem, headache, dizziness, fainting, tingling, left sided numbness, right sided numbness, left sided weakness, right sided weakness, problems walking, unable to move lower ext, unable to move upper ext, petit mal seizures, tonic-clonic seizures, cognitive dysfunction, other Exam Vitals: Vital Signs Date Time Temp Pulse Resp B/P (MAP) Pulse Ox O2 Delivery O2 Flow Rate FiO2 05/01/25 18:08 80 18 128/67 (87) 95 05/01/25 14:23 97.8 General: General: Awake and Alert, no acute distress. HEENT: Conjunctiva pink, Sclera clear, Mucus Membranes moist. Neck: Supple without masses and tenderness. Resp: Unlabored. Lungs clear to auscultation bilaterally. Heart: Regular Rate and rhythm, normal S1 and S2 without murmur, rub or gallop. Abdomen: Soft and non tender no organomegaly Extremities: No cyanosis,clubbing or edema. Skin: Warm and Dry. Diagnostic Data Last Recorded Lab Results: 05/01/25 1431 05/01/25 1431 Diagnostic Data: Laboratory Tests Test 05/01/25 14:31 Prothrombin Time 11.9 SECONDS (9.0-12.0) INR International Normalized Ratio 1.2 INR Activated Partial Thromboplast Time 27 SECONDS (22-32) Coagulation Comments Counseling Services Smoking & Tobacco Cessation: 3-10 Minutes Advance Care Planning Advanced Care plannin - 30 Minutes Additional Plan Assessment and plan Patient is a 74 year-old male with past medical history of diabetes, hypertension, high lipid levels, hypothyroidism, depression ,history of AFib, bladder cancer diagnosed in 2022 and on radiation therapy, BETZY, history of stroke. Came to the ER with a chief complaint of chest pain. Chest pain started yesterday at 9 pm while patient was lying down, described the pain as continuous, aggravated with deep breathing, no relieving factors. He graded the pain as 8/10, currently 5/10. He denied shortness of breath, palpitation, lightheadedness, leg swellings. Chest pain; cardiac versus noncardiac Relieved with morphine EKG does not show any acute ischemic changes, troponins are negative Due to multiple comorbidities, we will follow with the [place]aran NPO after midnight Echocardiogram, lipid panel, hemoglobin A1c ordered, please follow Urinary tract infection Lactic acid modestly elevated; 2.4 UA suggestive of UTI Rocephin 1 g IV daily initiated IV hydration; normal saline 50 mL/hours Monitor for signs of systemic infection Follow urine culture Diabetes type 2 Not on home medications Hemoglobin A1c ordered, please follow Carb controlled diet Atrial fibrillation; No RVR [id number] Score = 4 Eliquis five 5 mg p.o. twice daily History of hypertension Continue home medication, follow med rec History of sleep apnea Currently not on CPAP/BiPAP History of bladder cancer Currently undergoing radiation every six weeks Outpatient follow up Code status: Full code DVT prophylaxis: Edwar Bedoya Internal Medicine Resident Date of Service: May 01, 2025 Billing Provider: BONNIE SUAREZ MD,FERNANDEZ, RES May 01, 2025 19:34
[2025-05-01] MEDS: K and/or MAG REPLACEMENT MC SCH (20:00)
[2025-05-01 20:38] VITALS: BP 132/77; PULSE 105; RESP 11; TEMP 96.9; O2SAT 95
[2025-05-01 20:49] VITALS: RESP 12; O2SAT 95
[2025-05-01 22:00] VITALS: BP 123/67; PULSE 79; RESP 18; TEMP 97.7; O2SAT 94
[2025-05-01] MEDS: normal saline 1000ml 1,000 ML IV SCH (22:56)
[2025-05-02] VITALS (16 sets, daily range): BP systolic 82–130; BP diastolic 39–79; PULSE 55–86; RESP 12–22; TEMP 97.2–97.7; O2SAT 94–99
[2025-05-02 05:35] LABS: MEAN PLATELET VOLUME 8.3 FL (7.4-10.4); RED CELL DISTRIBUTION WIDTH 15.4 % (11.5-14.5)
[2025-05-02 06:04] LABS: CHOL/HDL RATIO 3.0 (0.00-4.99); CREATININE 0.75 MG/DL (0.60-1.10); LDL CHOLESTEROL 52 MG/DL (50-100); TOTAL CARBON DIOXIDE 30.0 MMOL/L (24-32); eCRCL 87 ML/MIN; eGFR > 90 ML/MIN
[2025-05-02] MEDS ORDERED: Lipase/Protease/Amylase (Creon Dr 12,000 Units Capsule) PO SCH (07:00)
[2025-05-02] MEDS: pantoprazole 40mg Tablet.DR PO SCH (07:42)
[2025-05-02] MEDS: cholecalciferol (vitamin D3) 1,000 unit (25mcg) tablet PO SCH (07:44)
[2025-05-02] MEDS: cyanocobalamin 500mcg tablet PO SCH (07:44)
[2025-05-02] MEDS: levoTHYROXINE 100mcg tablet PO SCH (07:44)
[2025-05-02] MEDS: buPROPion SR 150mg tablet PO SCH (07:44)
[2025-05-02] MEDS: MEROPENEM 1GM/NS 50ML IVPB IV SCH (07:47)
[2025-05-02] MEDS ORDERED: CefTRIAXone/D5W-Rocephin 1gm 50 ML IV SCH ×2 (08:00)
[2025-05-02] MEDS ORDERED: VITAMIN E MIXED PO SCH (08:00)
[2025-05-02] MEDS ORDERED: CYANOCOBALAMIN PO SCH (08:00)
[2025-05-02] MEDS ORDERED: enoxaparin 40mg/0.4ml syringe SUBCUT SCH (08:00)
[2025-05-02] MEDS: regadenoson 0.4mg/5ml syringe IV PRN (10:38)
--- NOTE | 2025-05-02 12:49 | RADIOLOGY REPORT ---
Reason for study/Clinical History: chest pain Comparison Study: None Myocardial Perfusion Study with SPECT Technique: The patient received an intravenous injection of 10 mCi of technetium-99m Sestamibi whil e at rest. After a short delay, SPECT tomographic images of the heart were obtained. The patient th en went to the stress lab where they received an intravenous Lexiscan utilizing standard protocol. 3 0 mCi of technetium-99m Sestamibi was injected intravenously immediately after the start of the inf usion. Gated SPECT tomographic images of the heart were acquired and processed. Findings: Rotating planar images show no significant attenuation artifact. The left ventricular size is within normal limits. Stress tomographic images demonstrate normal perfusion. Resting tomographic images demonstrate a similar pattern. Gated portion of the study shows normal wall motion and myocardial thickening. The left ventricular ejection fraction is 52%. (normal greater than 50%) Impression: Normal left ventricular size, wall motion, and function, without evidence of infarction or of myocard ium at ischemic risk. The left ventricular ejection fraction is 52%.
[2025-05-02 13:45] LABS: OCCULT BLOOD STOOL NEGATIVE (Neg)
--- NOTE | 2025-05-02 16:02 | PROGRESS NOTE- Residence ---
Progress Note - Resident Providers to CC Resident Creating Document: FERNANDEZ BEDOYA RES ~ Antibiotic Timeout Antibiotic Ordered?: No Subjective Patient was seen and examined at bedside. He had birthday today, family brought food and lopez. His chest pain has subsided since admission. Undergone Lexiscan today, which was negative for reversible ischemia. Patient can be discharged home tomorrow in a.m. if remained asymptomatic. Objective Vital Signs Date Time Temp Pulse Resp B/P (MAP) Pulse Ox O2 Delivery O2 Flow Rate FiO2 05/02/25 11:00 97.6 55 16 121/61 (81) 99 Room Air 05/01/25 20:16 4 36 General: Awake and Alert, no acute distress. HEENT: Conjunctiva pink, Sclera clear, Mucus Membranes moist. Neck: Supple without masses and tenderness. Resp: Unlabored. Lungs clear to auscultation bilaterally. Heart: Regular Rate and rhythm, normal S1 and S2 without murmur, rub or gallop. Abdomen: Soft and non tender no organomegaly Extremities: No cyanosis,clubbing or edema. Skin: Warm and Dry. Result Diagram: 05/02/25 0505 05/02/25 0505 Coagulation Studies Laboratory Tests Test 05/01/25 14:31 Prothrombin Time 11.9 SECONDS (9.0-12.0) INR International Normalized Ratio 1.2 INR Activated Partial Thromboplast Time 27 SECONDS (22-32) Coagulation Comments Advance Care Planning Advanced Care plannin - 30 Minutes Assessment Assessment Patient is a 74 year-old male with past medical history of diabetes, hypertension, high lipid levels, hypothyroidism, depression ,history of AFib, bladder cancer diagnosed in 2022 and on radiation therapy, BETZY, history of stroke. Came to the ER with a chief complaint of chest pain. Chest pain started yesterday at 9 pm while patient was lying down, described the pain as continuous, aggravated with deep breathing, no relieving factors. He graded the pain as 8/10, currently 5/10. He denied shortness of breath, palpitation, lightheadedness, leg swellings. Plan Plan Chest pain; more likely noncardiac (PUD/GERD) EKG does not show any acute ischemic changes, troponins are negative No further episode of chest pain Lexiscan done, no reversible ischemia Echo shows EF of 60% with RVSP 49 mmHg Continue pantoprazole 40 mg p.o. daily Urinary tract infection Lactic acid modestly elevated; 2.4 UA suggestive of UTI Rocephin 1 g IV daily initiated IV hydration; normal saline 50 mL/hours Monitor for signs of systemic infection urine culture negative Diabetes type 2 Not on home medications Hemoglobin A1c 4.7 Carb controlled diet Atrial fibrillation; No RVR [id number] Score = 4 Eliquis five 5 mg p.o. twice daily Hypertension Continue losartan 50 mg p.o. daily Hypothyroidism Continue levothyroxine 100 mcg daily TSH ordered, please follow Hyperlipidemia LDL 52 Continue home medications i.e. fenofibrate and atorvastatin History of sleep apnea Currently not on CPAP/BiPAP History of bladder cancer Currently undergoing radiation every six weeks Outpatient follow up Code status: Full code DVT prophylaxis: Edwar Bedoya Internal Medicine Resident Date of Service: May 02, 2025 Billing Provider: BONNIE SUAREZ MD,FERNANDEZ, RES May 02, 2025 16:02
--- NOTE | 2025-05-02 20:38 | CARDIOLOGY REPORT ---
APPROVED REPORT EXAM: Comprehensive 2D, Doppler, and color-flow Echocardiogram. Patient Location: 3[address] Heart Rate: 80's bpm Rhythm: ATRIAL FLUTTER Indications CHEST PAIN HYPERTENSION ATRIAL FIBRILLATION Hosiery Bagger: MD Jenelle Previous echo: 07-09-23 [facility] EF 60%, RVSP 42 mmHg, LAE, trTR 2D Dimensions RVDd 3.4 cm IVSd 1.2 (0.7-1.1cm) LVDd 5.1 cm PWd 1.2 (0.7-1.1cm) IVSs 1.5 (0.8-1.2cm) LVDs 3.5 (2.5-4.0cm) PWs 1.6 (0.8-1.2cm) LVOT Diameter 2.06 (1.8-2.4cm) LVEF(%) 58.2 (>50%) FS (%) 30.9 % SV 71.4 ml CO 5.9 L/min M-Mode Dimensions Left Atrium(MM) 5.70 (2.5-4.0cm) Aortic Root 3.83 (2.2-3.7cm) Aortic Valve AoV Peak Zain. 149.0 cm/s AoV VTI 29.7 cm AO Peak GR. 8.9 mmHg AO Mean GR. 6 mmHg LVOT VTI 21.70 cm LVOT Peak Zain. 98.8 cm/s JALEN(VTI)/BSA 2.43 cm2/m2 JALEN (VTI) 2.43 cm2 Mitral Valve MV Peak Gr. 5 mmHg MV PHT 68 ms MVA (PHT) 3.24 cm2 MV OXjn177.9 cm/s Tricuspid Valve TR P. Velocity 314 cm/s RAP ESTIMATE 10 mmHg TR Peak Gr. 39 mmHg RVSP 49 mmHg LEFT VENTRICLE Normal LV size and function. Mild concentric hypertrophy. Overall LVEF is 60%. RIGHT VENTRICLE RV is mildly dilated with normal function. Estimated PA systolic pressure of 49 mm of mercury. ATRIA Left atrium is severely dilated. AORTIC VALVE Trileaflet AV appears mildly sclerotic without stenosis. Trivial insufficiency. MITRAL VALVE Mild MV annular calcification & thickness (shreyas PML) without stenosis. Mild regurgitation. TRICUSPID VALVE TV appears structurally normal with mild regurgitation. PULMONIC VALVE Normal PV without stenosis, physiologic insufficiency. GREAT VESSELS The aortic root is upper limit normal. IVC is not well visualized. PERICARDIUM Normal pericardium. No effusion. Other Information Study Quality: Adequate Conclusion Overall LVEF is 60%. Normal LV size and function. Mild concentric hypertrophy. RV is mildly dilated with normal function. Estimated PA systolic pressure of 49 mm of mercury. Trileaflet AV appears mildly sclerotic without stenosis. Trivial insufficiency. Mild MV annular calcification & thickness (shreyas PML) without stenosis. Mild regurgitation. TV appears structurally normal with mild regurgitation. Normal PV without stenosis, physiologic insufficiency. Normal pericardium. No effusion.
[2025-05-02] MEDS ORDERED: non-formulary drug (Zolpidem Tartrate (Ambien) 1 TAB) PO SCH (21:00)
[2025-05-02] MEDS: HYDROcodone/acetaminophen 10/325mg tab PO PRN (21:24)
[2025-05-03 02:00] VITALS: BP 140/83; PULSE 66; RESP 18; TEMP 97.7; O2SAT 96
[2025-05-03 06:00] VITALS: BP 117/65; PULSE 67; RESP 14; TEMP 97.1; O2SAT 98
[2025-05-03 08:00] VITALS: RESP 14; O2SAT 98
[2025-05-03 08:03] LABS: MEAN PLATELET VOLUME 8.3 FL (7.4-10.4); RED CELL DISTRIBUTION WIDTH 15.4 % (11.5-14.5)
[2025-05-03 08:18] LABS: CREATININE 0.82 MG/DL (0.60-1.10); TOTAL CARBON DIOXIDE 26.3 MMOL/L (24-32); eCRCL 79 ML/MIN; eGFR > 90 ML/MIN
[2025-05-03] MEDS: levoFLOXACIN-Levaquin 250mg/D5 50 ML IV SCH (08:19)
[2025-05-03 11:00] VITALS: BP 115/64; PULSE 62; RESP 13; TEMP 97.4; O2SAT 95
[2025-05-03] MEDS ORDERED: SPIR25TA5 PO ×2 (11:30→16:22)
[2025-05-03] MEDS ORDERED: DABI150C PO (11:30)
[2025-05-03] MEDS ORDERED: LOSA50TA64 PO ×2 (11:30→16:22)
[2025-05-03] MEDS ORDERED: PANT40TA54 PO ×2 (11:30→16:22)
[2025-05-03] MEDS ORDERED: CARV-50 PO ×2 (11:30→16:22)
[2025-05-03] MEDS ORDERED: LEVO750T68 PO ×2 (11:30→16:22)
[2025-05-03] MEDS ORDERED: ATOR20TA PO (11:30)
[2025-05-03] MEDS ORDERED: SUCR1TAB PO ×2 (11:33→16:22)
[2025-05-03] MEDS ORDERED: GABA300C PO (16:22)
[2025-05-03] MEDS ORDERED: ATOR20TA66 PO (16:22)
[2025-05-03] MEDS ORDERED: SERT25TA84 PO (16:22)
[2025-05-03] MEDS ORDERED: ARA20T PO (16:22)
[2025-05-03] MEDS ORDERED: FINA5TAB PO (16:22)
[2025-05-03] MEDS ORDERED: POTA-207 PO (16:22)
[2025-05-03] MEDS ORDERED: ZOLP-679 PO (16:22)
[2025-05-03] MEDS ORDERED: LEVO125T8 PO (16:22)
[2025-05-03] MEDS ORDERED: APIX5TAB3 PO (16:22)
[2025-05-03] MEDS ORDERED: BUPR-114 PO (16:22)
[2025-05-03] MEDS ORDERED: CYAN100082 PO (16:22)
[2025-05-03] MEDS ORDERED: CHOL10006 PO (16:22)
--- NOTE | 2025-05-03 18:04 | DISCHARGE SUMMARY-Residence ---
Discharge Summary Providers to CC Resident Creating Document: KEVIN JOYCE MD ~ Discharge Summary Admission Diagnosis: Chest pain Hospital Course DATE OF ADMISSION: 05/01/2025 DATE OF DISCHARGE: 05/03/2025 Labs at the time of dischrage WBC: 8.2 Hgb: 13.3 Hct: 38.8 Image findings Lexiscan: Normal left ventricular size, wall motion, and function, without evidence of infarction or of myocardium at ischemic risk. The left ventricular ejection fraction is 52%. Chest X-ray : No acute cardiopulmonary disease. Echocardiogram: overall LVEF is 60%. Normal LV size and function. Mild concentric hypertrophy. RV is mildly dilated with normal function. Estimated PA systolic pressure of 49 mm of mercury. Trileaflet AV appears mildly sclerotic without stenosis. Trivial insufficiency. Mild MV annular calcification & thickness (shreyas PML) without stenosis. Mild regurgitation. TV appears structurally normal with mild regurgitation. Normal PV without stenosis, physiologic insufficiency. Normal pericardium. No effusion. Discharge Diagnosis\Comment: Chest pain; more likely noncardiac (PUD/GERD) Urinary tract infection Diabetes type 2 Atrial fibrillation; No RVR Hypertension Hypothyroidism Hyperlipidemia History of sleep apnea History of bladder cancer; Currently undergoing radiation every six weeks Operations\Procedures: none Consultants: none Complications: none Condition on DC: Stable New Medications: Apixaban (Eliquis) 5 Mg Tablet 5 MG PO BID for 30 Days, #60 TAB Atorvastatin Calcium (Atorvastatin Calcium) 20 Mg Tablet 20 MG PO DAILY for 30 Days, #30 TAB Bupropion Hcl (Bupropion Hcl Sr) 150 Mg Tablet.er 1 TAB PO Q12H for 30 Days, #60 TAB 0 Refills Carvedilol (Carvedilol) 12.5 Mg Tablet 1 TAB PO Q12H for 30 Days, #60 TAB 0 Refills Cholecalciferol (Vitamin D) 1,000 Unit Capsule 1 CAP PO DAILY for 30 Days, #30 CAP 0 Refills Cyanocobalamin (Vitamin B-12) (B-12) 1,000 Mcg Tablet.er 1 TAB PO DAILY for 30 Days, #30 TAB 0 Refills Finasteride (Finasteride) 5 Mg Tablet 1 TAB PO DAILY for 30 Days, #30 TAB 0 Refills Gabapentin (Neurontin) 300 Mg Capsule 1 CAP PO Q8H for 30 Days, #90 CAP 0 Refills Leflunomide (Leflunomide) 20 Mg Tablet 1 TAB PO DAILY for 30 Days, #30 TAB Levofloxacin (Levofloxacin) 750 Mg Tablet 750 MG PO DAILY, #7 TAB Levothyroxine Sodium (Levothyroxine Sodium) 125 Mcg Tablet 100 MCG PO DAILY for 30 Days, #30 TAB Losartan Potassium (Losartan Potassium) 50 Mg Tablet 50 MG PO DAILY for 30 Days, #30 TAB Pantoprazole Sodium (Pantoprazole Sodium) 40 Mg Tablet.dr 40 MG PO BID for 30 Days, #60 TAB.SR Potassium Chloride* (K-Dur*) 20 Meq Tab.prt.sr 1 TAB PO DAILY for 30 Days, #30 TAB Sertraline HCl (Sertraline HCl) 25 Mg Tablet 1 TAB PO DAILY for 30 Days, #30 TAB 0 Refills Spironolactone (Spironolactone) 25 Mg Tablet 25 MG PO DAILY, #30 TAB Sucralfate (Sucralfate) 1 Gram Tablet 1 TAB PO Q8H for 30 Days, #90 TAB 0 Refills Zolpidem Tartrate (Ambien) 10 Mg Tablet 1 TAB PO HSPRN PRN for sleep for 30 Days, #30 TAB 0 Refills Discharge Summary: HPI Patient is a 74 year-old male with past medical history of diabetes, hypertension, high lipid levels, hypothyroidism, depression ,history of AFib, bladder cancer receving radiation therapy for it, BETZY, history of stroke. Came to the ER with a chief complaint of chest pain. Chest pain started on 05/01/2025 at 9 pm while patient was lying down, described the pain as continuous, aggravated with deep breathing, no relieving factors. He graded the pain as 8/10, currently 5/10. He denied shortness of breath, palpitation, lightheadedness, leg swellings. He also denied fever, cough, nausea, vomiting. Hospital Course Initially chest pain was suspected due to angina howeever patient troponins were negative and ecg was not significant.Then lexiscan was performed which showed normal left ventricular size, wall motion, and function, without evidence of infarction or of myocardium at ischemic risk. The left ventricular ejection fraction is 52%. Atrial Fibrillation Patient also had history of Afib however his rate was controlled and his [id number] was 4 so Elliquis was started. Urinary Tract Infection Urinalysis was also done which was positive urine leuckocyte esterase and wbc and urinary tract infection was treated with meropenam because patient was allergic to cephalexin. Physical exam Vital Signs Date Time Temp Pulse Resp B/P (MAP) Pulse Ox O2 Delivery O2 Flow Rate FiO2 05/03/25 11:00 97.4 62 13 115/64 (81) 95 Room Air 05/01/25 20:16 4 36 Physical Examination at the time of discharge General: Awake and Alert, no acute distress. HEENT: Conjunctiva pink, Sclera clear, Mucus Membranes moist. Neck: Supple without masses and tenderness. Resp: Unlabored. Lungs clear to auscultation bilaterally. Heart: Regular Rate and rhythm, normal S1 and S2 without murmur, rub or gallop. Abdomen: Soft and non tender no organomegaly Extremities: No cyanosis,clubbing or edema. Skin: Warm and Dry. Follow up with your primary care doctor in 1 week. repeat CBC, BMP, proBNP in 1 week. Follow up with our jute bag cutting machine operator; Dr. Wise in 2 weeks. *Problems/Diagnosis: (1) Generalized weakness Status: Acute (2) Chest pain Status: Acute (3) Urinary tract infection Status: Acute Total Time Spent on D/C: > 30 Minutes Date of Service: May 03, 2025 Billing Provider: BONNIE SUAREZ MD, SANJAY, RES May 03, 2025 17:53 FERNANDEZ STALEY, RES May 03, 2025 19:05
== END 2025-05-03 14:00 | disposition home health service (06) | DRG 872 ==
LOC: ER 14:19 → ED HOLD 17:57 → PCU 3S 20:34 → UNDODISIN 05-02 17:24
PROVIDERS: ADMIT Internal Medicine; ATTEND Internal Medicine
PROC: 4A02XM4 Measurement of Cardiac Total Activity, External Approach (ICD-10-PCS; principal; 2025-05-02)
PROC: 3E033HZ Introduction of Radioactive Substance into Peripheral Vein, Percutaneous Approach (ICD-10-PCS; 2025-05-02)
DX: A41.9 Sepsis, unspecified organism (principal); N39.0 Urinary tract infection, site not specified; M06.9 Rheumatoid arthritis, unspecified; K21.9 Gastro-esophageal reflux disease without esophagitis; K27.9 Peptic ulcer, site unspecified, unspecified as acute or chronic, without hemorrhage or perforation; R07.89 Other chest pain; G47.33 Obstructive sleep apnea (adult) (pediatric); E11.9 Type 2 diabetes mellitus without complications; I48.91 Unspecified atrial fibrillation; E03.9 Hypothyroidism, unspecified; Z88.1 Allergy status to other antibiotic agents; Z79.01 Long term (current) use of anticoagulants; Z79.899 Other long term (current) drug therapy; Z90.49 Acquired absence of other specified parts of digestive tract; Z85.51 Personal history of malignant neoplasm of bladder
CPT/HCPCS: 36415; 71045; 78452; 80048; 80053; 80061; 81001; 82272; 83036; 83605; 83880; 84484; 85007; 85025; 85610; 85730; 87040; 87081; 87088; 93005; 93017; 93306; 96365; 96375; 97116; 97161; 97530; 99285; A6213; A6590; A9500; G0378; J1956; J2185; J2270; J2405; J2543; J2785; J7030

== ENCOUNTER 2025-05-18 20:14 | Inpatient (IN) | payer OTHER, MEDICARE ==
[~2025-05-18] VITALS: Ht 177.8 cm; Wt 88.3 kg
[~2025-05-18 20:14] MED LIST changes: -AMYL1CAP54 PO; +APIX5TAB3 PO; -ATOR20TA PO; +ATOR20TA66 PO; +BUPR-114 PO; -BUPR150T8 PO; -CHOL100046 PO; +CHOL10006 PO; -CYAN-104 PO; +CYAN100082 PO; -DABI150C PO; -FENO145T26 PO; +FINA5TAB PO; -FINA5TAB11 PO; -HYDR-4353 PO; -LEVO100T9 PO; +LEVO125T8 PO; -SERT25TA PO; +SERT25TA84 PO; +SUCR1TAB PO; -VITA-288 PO
--- NOTE | 2025-05-18 21:06 | RADIOLOGY REPORT ---
CHEST RADIOGRAPH Indication: sepsis Technique: Single frontal view of the chest was obtained Comparison: DI CHEST,SINGLE VIEW on DOS: 05/01/25, CHEST,SINGLE VIEW on DOS: 06/16/22 FINDINGS: Lines and Tubes: None Lungs: No focal consolidation. Mild elevation of the right hemidiaphragm. Pleura: No effusion. No pneumothorax. Cardiomediastinal contours: Unremarkable Bones: No acute osseous abnormality. IMPRESSION: No acute cardiopulmonary disease.
[2025-05-18 21:15] LABS: MEAN PLATELET VOLUME 7.9 FL (7.4-10.4); RED CELL DISTRIBUTION WIDTH 14.9 % (11.5-14.5)
[2025-05-18 21:25] LABS: CREATININE 0.89 MG/DL (0.60-1.10); TOTAL CARBON DIOXIDE 28.2 MMOL/L (24-32); eGFR 83 ML/MIN
--- NOTE | 2025-05-18 22:12 | ELECTROCARDIOGRAPH REPORT ---
[facility] Test Date: 2025-05-18 Test Time: 22:09:58 Pat Name: SAMY MURILLO Department: [facility]- Patient ID: [facility]-[id number] Room: Gender: M [employer] Worker: : 1950 Requested By: CRISTIANA ROMO Order Number: [id number] Reading MD: Dr. Cristiana Romo Measurements Intervals [place] Rate: 86 P: 0 [place]: 0 QRS: -3 QRSD: 104 T: 99 QT: 418 QTc: 500 Interpretive Statements Atrial flutter Abnormal R-wave progression, early transition Borderline repolarization abnormality ST elevation, consider inferior injury Electronically Signed On 05-18-2025 22:57:[address] Cristiana Romo Please click the below link to view image of tracing.
[2025-05-18 22:23] LABS: LEUKOCYTE ESTERASE ,URINE MODERATE (Neg); NITRITES, URINE NEGATIVE (Neg); OCCULT BLOOD,URINE TRACE-INTACT (Neg)
[2025-05-18 22:29] LABS: UA COLLECTION TYPE CLN CATCH MIDSTREAM
[2025-05-18 22:31] LABS: HYALINE CASTS 0-3 /LPF (NEGATIVE); SQUAMOUS EPITHELIAL CELL,UR FEW /LPF (FEW)
[2025-05-18] MEDS ORDERED: FENO145T38 PO (23:21)
[2025-05-18] MEDS ORDERED: FURO40TA4 PO (23:21)
[2025-05-18] MEDS ORDERED: SPIR25TA5 PO (23:21)
[2025-05-18] MEDS ORDERED: SERT-434 PO (23:21)
[2025-05-18] MEDS ORDERED: ATOR40TA PO (23:21)
[2025-05-18] MEDS ORDERED: BUPR150T8 PO (23:21)
[2025-05-18] MEDS ORDERED: HYDR-3965 PO (23:21)
[2025-05-18] MEDS ORDERED: ASPI81TA52 PO (23:21)
[2025-05-18] MEDS ORDERED: APIX5TAB3 PO (23:21)
[2025-05-18] MEDS ORDERED: TAMS-55 PO (23:21)
[2025-05-18] MEDS ORDERED: OMEP20TA43 PO (23:21)
[2025-05-18] MEDS ORDERED: CYAN-36 PO (23:21)
[2025-05-18] MEDS ORDERED: ZOLP5TAB8 PO (23:21)
[2025-05-18] MEDS ORDERED: LEVO100T9 PO (23:21)
[2025-05-18] MEDS ORDERED: GABA-1405 PO (23:24)
--- NOTE | 2025-05-18 23:33 | Physician Documentation ---
History of Present Illness ~ Chief Complaint: Urinary Symptoms Stated Complaint: UTI SYMPTOMS Time Seen by MD: 23:25 OK to notify your PCP?: Yes Primary Medical Doctor: Dr. Contreras Source: patient, RN/MD, EMS, RN notes reviewed, EMS notes reviewed, old records Mode of Arrival: EMS Exam Limitations: no limitations HPI 75 year old male who is a former member of the [employer] seen with history of stroke and recurrent UTIs presents to the emergency department for complaints of a UTI. Patient presents with family and he states he has been feeling weak with foul smelling dark urine and believes he is having another UTI. He endorses back pain but states it is chronic. Patient denies any fevers or nausea. He states that he is followed by a [facility] He states he gets approximately two UTIs a month. He sees Dr. Wise as his sheet taker. Patient is on blood thinners. Of note his stroke was on 04/25/2025. Medication Reconciliation Allergies: Coded Allergies: cephalexin (Verified Allergy, Unknown, HALLUCINATES, 05/01/25) Scheduled Ampicillin Trihydrate (Ampicillin Trihydrate), 1 CAP PO Q8H Apixaban (Eliquis), 1 TAB PO Q12H, (Reported) Aspirin (Aspirin EC), 1 TAB PO DAILY, (Reported) Atorvastatin Calcium* (Lipitor*), 1 TAB PO DAILY, (Reported) Bupropion Hcl SR* (Wellbutrin SR*), 1 TAB PO BID Carvedilol (Coreg), 1 TAB PO Q12H Cholecalciferol (Vitamin D), 1 CAP PO DAILY, (Reported) Cyanocobalamin (Vitamin B-12) (B-12), 1 TAB PO DAILY, (Reported) Fenofibrate Nanocrystallized* (Tricor*), 1 TAB PO QAM, (Reported) Flecainide Acetate (Tambocor), 50 MG PO Q12H Gabapentin (Gabapentin), 0.5 TAB PO TID, (Reported) Levothyroxine Sodium (Levothyroxine Sodium), 1 TAB PO DAILY, (Reported) Omeprazole (Omeprazole), 2 TAB PO QAM, (Reported) Sertraline HCl (Sertraline HCl), 1 TAB PO QAM, (Reported) Spironolactone (Spironolactone), 1 TAB PO HS, (Reported) Sucralfate (Sucralfate), 1 TAB PO Q8H, (Reported) Tamsulosin Hcl* (Flomax*), 1 CAP PO HS, (Reported) Scheduled PRN Hydrocodone Bit/Acetaminophen 5/325 MG (Cooter 5/325 MG), 2 TAB PO BID PRN for pain, (Reported) Zolpidem Tartrate* (Ambien*), 1 TAB PO HS PRN for INSOMNIA, (Reported) Discontinued Medications Apixaban (Eliquis), 5 MG PO BID Discontinued Reason: Other Atorvastatin Calcium (Atorvastatin Calcium), 20 MG PO DAILY Discontinued Reason: Other Bupropion Hcl (Bupropion Hcl Sr), 1 TAB PO Q12H Discontinued Reason: Other Carvedilol (Carvedilol), 1 TAB PO Q12H Discontinued Reason: Other Cholecalciferol (Vitamin D), 1 CAP PO DAILY Discontinued Reason: Other Cyanocobalamin (Vitamin B-12) (B-12), 1 TAB PO DAILY Discontinued Reason: Other Finasteride (Finasteride), 1 TAB PO DAILY Discontinued Reason: Other Furosemide (Furosemide), 1 TAB PO QAM, (Reported) Gabapentin (Neurontin), 1 CAP PO Q8H Discontinued Reason: Other Leflunomide (Leflunomide), 1 TAB PO DAILY Discontinued Reason: Other Levofloxacin (Levofloxacin), 750 MG PO DAILY Discontinued Reason: Other Levothyroxine Sodium (Levothyroxine Sodium), 100 MCG PO DAILY Discontinued Reason: Other Losartan Potassium (Losartan Potassium), 50 MG PO DAILY Discontinued Reason: Other Pantoprazole Sodium (Pantoprazole Sodium), 40 MG PO BID Discontinued Reason: Other Potassium Chloride* (K-Dur*), 1 TAB PO DAILY Discontinued Reason: Other Sertraline HCl (Sertraline HCl), 1 TAB PO DAILY Discontinued Reason: Other Spironolactone (Spironolactone), 25 MG PO DAILY Discontinued Reason: Other Sucralfate (Sucralfate), 1 TAB PO Q8H Discontinued Reason: Other Zolpidem Tartrate (Ambien), 1 TAB PO HSPRN PRN for sleep Discontinued Reason: Other Past Medical History Past Medical History: Diabetes, Chronic Back Pain, Rheumatoid Arthritis Past Surgical History: orthopedic surgeries Patient History: FHx: congestive heart failure GRANDFATHER OR GRANDMOTHER, Onset:60 years & older FHx: melanoma FATHER, , Age: 40's - 50, Cause: Melanoma Alcohol Use: None Drug Use: none Lives with: Mother, Father, Spouse, Other Lives In: Home Review of Systems All Other Systems at this time: Reviewed and Negative ROS As stated above in the HPI, otherwise all systems are reviewed and negative. Physical Exam Vital Signs: RN Vital Signs have been reviewed: Yes, Temperature: 97.9, Source: Oral, Heart Rate: 86, Respiratory Rate: 16, BP: 132/80, Pulse Oximetry: 97, Weight: 93.000 Oxygen Flow Rate: 0 Pulse Oximetry Reflects: adequate oxygenation Physical Exam General: Patient is weak and uncomfortable appearing. The patient is well developed, well nourished, nontoxic appearing. Skin: [place], warm and dry with no rashes. HEENT: Head was normocephalic and atraumatic. Eyes - pupils equal, round, reactive to light and accommodation. Extraocular movements were intact. Conjunctivae were nonicteric. Ears - bilateral tympanic membranes were normal. The mouth and oropharynx were clear with moist mucous membranes. There were no pharyngeal exudates or erythema. Neck: Supple and nontender. There was no jugular venous distention, lymphadenopathy, thyromegaly or masses. Chest: Clear to auscultation bilaterally without wheezes, rales or rhonchi. No accessory muscle use. No dullness to percussion. Heart: [place] S1, S2. No murmurs. Palpation of the chest wall was normal. No rubs or thrills. Abdomen: Soft, nontender and nondistended. Positive bowel sounds. No guarding or rebound. No hepatosplenomegaly or palpable masses. Extremities:Trace edema. The patient moves all extremities. Pulses were equal and symmetric. Neurologic: Cranial nerves II-XII were intact. Sensation was intact to light touch throughout. Motor strength was 5/5 in all four extremities. Deep tendon reflexes were intact in both upper and lower extremities. Psychologic: The patient was oriented to person, place and time. The patient demonstrated appropriate judgement and insight. Progress Progress Note 2349: The case was discussed with the hospitalist who was informed on the patients case and kindly agreed to admission. Results/Orders Reviewed/noted all lab results: Yes Results/Orders Orders - DASH BURTON MD Chest,Single View (05/18/25 20:57) Monitor (05/18/25 20:35) Oxygen (05/18/25 20:35) Saline Lock (05/18/25 20:35) Electrocardiogram (05/18/25 ) Completed Orders - DASH BURTON MD Cbc/Diff (05/18/25 20:35) Culture Blood (05/18/25 20:35) Chest,Single View (05/18/25 20:57) Procalcitonin (05/18/25 20:35) BMP (05/18/25 20:35) Lacticsepsis (05/18/25 20:35) Electrocardiogram (05/18/25 ) Cult Urine + [address] (05/18/25 22:29) Ua W/Microscopic, Cult If Ind (05/18/25 21:30) Liver Panel (05/18/25 20:52) Levofloxacin-Levaquin 750mg/D5 (Levaquin (05/18/25 23:50) Laboratory Tests Test 05/18/25 20:52 05/18/25 21:30 White Blood Count 8.0 Red Blood Count 4.37 L Hemoglobin 14.5 Hematocrit 42.4 Mean Corpuscular Volume 97.2 Mean Corpuscular Hemoglobin 33.3 H Mean Corpuscular Hemoglobin Concent 34.2 Red Cell Distribution Width 14.9 H Platelet Count 125 L Mean Platelet Volume 7.9 Neutrophils (%) (Auto) 73.3 Lymphocytes (%) (Auto) 15.5 L Monocytes (%) (Auto) 9.7 Eosinophils (%) (Auto) 1.0 Basophils (%) (Auto) 0.5 Neutrophils # (Auto) 5.9 Lymphocytes # (Auto) 1.2 Monocytes # (Auto) 0.8 Eosinophils # (Auto) 0.1 Basophils # (Auto) 0.0 CBC Comment Sodium Level 139 Potassium Level 3.7 Chloride Level 105 Carbon Dioxide Level 28.2 Anion Gap 6 L Blood Urea Nitrogen 21 H Creatinine 0.89 Estimated GFR/1.73 m2 83 BUN/Creatinine Ratio 23.6 H Glucose Level 118 H Lactic Acid Level 1.5 Calcium Level 9.1 Total Bilirubin 0.6 Direct Bilirubin 0.1 Aspartate Amino Transf (AST/SGOT) 27 Alanine Aminotransferase (ALT/SGPT) 26 Alkaline Phosphatase 62 Total Protein 7.1 Albumin 3.8 Globulin 3.3 Albumin/Globulin Ratio 1.2 Procalcitonin < 0.05 Chemistry Comments Urine Specimen Description Cln catch midstream Urine Color Yellow Urine Clarity Clear Urine pH 6.0 Urine Specific Concrete >=1.030 Urine Protein Negative Urine Glucose (UA) Negative Urine Ketones Negative Urine Occult Blood Trace-intact Urine Nitrite Negative Urine Bilirubin Negative Urine Urobilinogen 0.2 Urine Leukocyte Esterase Moderate H Urine RBC 0-2 Urine WBC 50-100 H Urine Squamous Epithelial Cells Few Urine Bacteria 1+ Urine Hyaline Casts 0-3 Urine Culture Indicated Indicated Volume Urine Centrifuged 10 ml Urine Comment Microbiology Date/Time Source Procedure Growth Status 05/18/25 22:29 Urine Clean Catch Midstream Urine Culture - Final Enterococcus Faecalis Complete 05/18/25 20:52 Blood Arm Left Blood Culture - Final NO GROWTH AFTER 5 DAYS Complete Re-Evaluation Re-Evaluation : Re-Evaluation: Improved Progress Patient was seen and examined. Patient was given reassurance. Patient was complaining of some urinary complaints. Patient was found to have a UTI started on levofloxacin. Patient's laboratory work was obtained CBC WBCs 8.0 with a hemoglobin 14 and 424 hematocrit. MCV 97. Platelets 125 slightly low and 73% neutrophils which did not show significant left shift. Patient's chemistry shows slight elevation of BUN of 21 and creatinine 0.89 otherwise reassuring with glucose of 118 well controlled diabetes lactic acid is 1.5. Patient's procalcitonin is negative. However the patient's urine shows a specific gravity of 1.030 consistent with prerenal dehydration but the leukocyte esterase is moderate RBCs 0-2 WBCs 50-100 with 1+ bacteria few epithelial cells. I then contacted the hospitalist service regarding management of the patient. Antibiotics and fluids were immediately given. Patient has multiple comorbiditi es including cardiac and diabetes. Continuous cardiac cath lab manager interpretation shows normal sinus rhythm heart rate 60s, no ectopy, normal, my interpretation. Pulse oximetry monitor interpretation shows normal oxygenation 98% room air, normal, my interpretation. EKG/XRAY/CT/US/VASC/MRI EKG : Additional Comment [facility] Test Date: 2025-05-18 Test Time: 22:09:58 Pat Name: SAMY MURILLO Department: [facility]- Patient ID: [facility]-[id number] Room: Gender: M [employer] Encaser: : 1950 Requested By: DASH BURTON Order Number: [id number] Reading MD: Dr. Dash Burton Measurements Intervals [place] Rate: 86 P: 0 [place]: 0 QRS: -3 QRSD: 104 T: 99 QT: 418 QTc: 500 Interpretive Statements Atrial flutter Abnormal R-wave progression, early transition Borderline repolarization abnormality ST elevation, consider inferior injury Electronically Signed On 05-18-2025 22:57:[address] Dash Burton Please click the below link to view image of tracing. EKG Date and Time:05/18/252208 Electronically Signed by: DASH BURTON MD Date and Time: 05/18/252256 Chest X-Ray : Additional Comments CHEST RADIOGRAPH Indication: sepsis Technique: Single frontal view of the chest was obtained Comparison: DI CHEST,SINGLE VIEW on DOS: 05/01/25, CHEST,SINGLE VIEW on DOS: 06/16/22 FINDINGS: Lines and Tubes: None Lungs: No focal consolidation. Mild elevation of the right hemidiaphragm. Pleura: No effusion. No pneumothorax. Cardiomediastinal contours: Unremarkable Bones: No acute osseous abnormality. IMPRESSION: No acute cardiopulmonary disease. Electronically Signed by:LAURENCE ABRAMS DO Date & Time: 05/18/252103 Dictated by: LAURENCE ABRAMS DO Dictation date and time: 05/18/252103 Medical Decision Making Additional info obtained from: old records Urinary Diff Dx:Considerations: Include: Bowel obstruction, Bladder outlet obstruc., DJD, Epididymitis, Musculoskeletal pain, Prostatitis, Pyelonephritis, Renal failure, Renal infarction, Strain, Urolithiasis, Urethritis, Urinary re tention, UTI, Other Departure Time of Disposition: 23:49 Disposition: ADMITTED INPATIENT Admitted to Inpatient Unit: yes, to hospitalist Admission Level of Care: Med/Surg with Tele Impression: Primary Impression: UTI (urinary tract infection) Qualified Codes: N30.00 - Acute cystitis without hematuria Additional Impressions: Weakness Palpitations Condition: Fair Referrals: NO PRIMARY CARE PROVIDER (PCP) Prescriptions Flecainide Acetate (Tambocor) 50 Mg Tablet 50 MG PO Q12H for 30 Days, #60 TAB Prov: ALEJANDRINA GARAY MD 05/22/25 Ampicillin Trihydrate (Ampicillin Trihydrate) 500 Mg Capsule 1 CAP PO Q8H for 5 Days, #15 CAP Prov: ALEJANDRINA GARAY MD 05/22/25 Bupropion Hcl SR* (Wellbutrin SR*) 150 Mg Tablet.sa 1 TAB PO BID for 30 Days, #60 TAB LOOK-ALIKE SOUND-ALIKE DRUG buSPIRone & buPROPion Prov: ALEJANDRINA GARAY MD 05/22/25 Carvedilol (Coreg) 3.125 Mg Tablet 1 TAB PO Q12H for 30 Days, #60 TAB Prov: ALEJANDRINA GARAY MD 05/22/25 Education Educated: Patient Educated regarding: diagnosis, treatment, prognosis, need for follow up Signature Scribe Signature: Scribed for Dash Burton MD by Devon Pineda . 05/18/25 23:50 Attestation: The note accurately reflects work and decisions made by me.Dash Burton MD 05/18/25 23:33 DASH BURTON MD May 18, 2025 23:33 DEVON TRACEY May 18, 2025 23:50
[2025-05-18] MEDS ORDERED: magnesium sulf-water 2g/50mL 50 ML IV PRN (23:50)
[2025-05-18] MEDS ORDERED: magnesium sulf-water 4G/100mL 100 ML IV PRN (23:50)
[2025-05-18] MEDS ORDERED: ondansetron/PF 4mg/2ml inj IV PRN (23:50)
[2025-05-18] MEDS ORDERED: mag hydrox/Alum hydrox/simeth 30ml oral suspension PO PRN (23:50)
[2025-05-18] MEDS ORDERED: potassium Cl 40MEQ/1/2NS 520ml 520 ML IV PRN (23:50)
[2025-05-18] MEDS ORDERED: magnesium Cl slow-release 64mg tablet PO PRN (23:50)
[2025-05-18] MEDS ORDERED: magnesium hydroxide 30ml (MOM) UD suspension PO PRN (23:50)
[2025-05-18] MEDS ORDERED: potassium Cl 20 mEq SR tablet PO PRN (23:50)
[2025-05-19] VITALS (8 sets, daily range): BP systolic 135–152; BP diastolic 60–85; PULSE 64–99; RESP 14–20; TEMP 97.1–97.7; O2SAT 97–98
[2025-05-19] MEDS: levoFLOXACIN-Levaquin 750MG/D5 150 ML IV ONE
[2025-05-19] MEDS: normal saline 1000ml 1,000 ML IV SCH (00:01)
--- NOTE | 2025-05-19 02:07 | HISTORY AND PHYSICAL-Residence ---
History & Physical Providers to CC Resident Creating Document: KALEY WHITESIDE RES ~ History of Present Illness Primary Medical Doctor: Dr. Contreras Reason for Admit\Complaint: UTI symptoms History of Present Illness This is a 75-year-old male patient with a medical history of bladder cancer diagnosed in 2022 currently undergoing intravesical radiotherapy presented to the hospital with complaints of worsening UTI symptoms since the last two days. He was recently admitted to the hospital on 05/01, and was treated with meropenem due to his allergy with the cephalexin and discharged home with Levaquin which he finished a few days ago. His symptoms included dysuria and foul-smelling urine but as we age close tomorrow, he came into the hospital. Of note, patient receives intra per cycle radiotherapy every six weeks and the last therapy was a couple of weeks ago. Allergies: Coded Allergies: cephalexin (Verified Allergy, Unknown, HALLUCINATES, 05/01/25) Home Medications Home Medications Active Reported Gabapentin 600 Mg Tablet 0.5 Tab PO TID 30 Days Furosemide 40 Mg Tablet 1 Tab PO QAM 30 Days Spironolactone 25 Mg Tablet 1 Tab PO HS 30 Days Sertraline HCl 100 Mg Tablet 1 Tab PO QAM 30 Days Ambien* (Zolpidem Tartrate) 5 Mg Tablet 1 Tab PO HS PRN Eliquis (Apixaban) 5 Mg Tablet 1 Tab PO Q12H 30 Days B-12 (Cyanocobalamin (Vitamin B-12)) 1,000 Mcg Tablet 1 Tab PO DAILY 30 Days Tricor* (Fenofibrate) 145 Mg Tablet 1 Tab PO QAM 30 Days Aspirin EC (Aspirin) 81 Mg Tablet.dr 1 Tab PO DAILY 30 Days [place] 5/325 MG (Acetaminophen/Hydrocodone Bitart) 5 Mg/325 Mg Tablet 2 Tab PO BID PRN 5 Days Flomax* (Tamsulosin HCl) 0.4 Mg Cap.sr.24h 1 Cap PO HS 30 Days Levothyroxine Sodium 100 Mcg Tablet 1 Tab PO DAILY 30 Days Omeprazole 20 Mg Tablet.dr 2 Tab PO QAM 30 Days Wellbutrin SR* (Bupropion HCl) 150 Mg Tablet.sa 1 Tab PO BID LOOK-ALIKE SOUND-ALIKE DRUG buSPIRone & buPROPion Lipitor* (Atorvastatin Calcium) 40 Mg Tablet 1 Tab PO DAILY 30 Days Past Medical History Past Medical History Hypertension, hyperlipidemia, hypothyroidism, depression, atrial flutter, BETZY, history of stroke, bladder cancer diagnosed in 2022 undergoing intravesical radiotherapy Past Surgical History Surgical History Comment No significant surgical history Family History Family History: FHx: congestive heart failure GRANDFATHER OR GRANDMOTHER, Onset:60 years & older FHx: melanoma FATHER, , Age: 40's - 50, Cause: Melanoma Past Social History Social History Comment Nonsmoker, denies alcohol or illicit drug abuse. Lives at home with family. Smoking: Other Alcohol Use: None Drug Use: None Lives with: Mother, Father, Spouse, Other Lives In: Home ROS ROS As stated above in the HPI, otherwise all systems are reviewed and negative. Exam Vitals: Vital Signs Date Time Temp Pulse Resp B/P (MAP) Pulse Ox O2 Delivery O2 Flow Rate FiO2 05/19/25 01:07 76 16 124/71 (88) 95 0 05/18/25 22:34 97.9 General: General: Awake and Alert, no acute distress. HEENT: Conjunctiva pink, Sclera clear, Mucus Membranes moist. Resp: Unlabored. Lungs clear to auscultation bilaterally. Heart: Regular Rate and rhythm, normal S1 and S2 without murmur, rub or gallop. Abdomen: Soft and non tender no organomegaly Extremities: No cyanosis,clubbing or edema. Skin: Warm and Dry. Diagnostic Data Last Recorded Lab Results: 05/18/25205105/18/252051 Additional Plan Acute recurrent symptomatic UTI: Bladder cancer currently undergoing therapy Urinalysis positive for leukocyte esterase and WBCs Previously treated with Levaquin and meropenem No prior C&S available on EMR We will kindly treated with broad-spectrum antibiotics; started the patient on Zosyn Hydrate with NS at a rate of 75 cc/hour No SIRS. Protocol negative. Vitals stable Continue tamsulosin after medication reconciliation Blood cultures and urine cultures taken Atrial flutter: Rate controlled Continue Eliquis 5 mg b.i.d. after medication reconciliation On radiation monitor Type 2 diabetes mellitus: History of, A1c on 05/11 was 4.7 Taken off of metformin Currently on no medications Continue monitoring blood glucose in daily CMP Hypothyroidism: TSH was 3 in 2020 Continue home medication of levothyroxine 100 mcg But we will repeat at this time Hyperlipidemia: Home medications of fenofibrate and atorvastatin Lines: PIV Code status: Full code DVT prophylaxis: Eliquis Diet: Regular GI prophylaxis: Protonix Kaley Whiteside PGY3, Internal medicine resident Pt seen and evaluated Discussed with the resident Pls ask Urology to evaluate on account of frequent recurrences Continue present plan as outlined Date of Service: May 19, 2025 Billing Provider: HALEY ARCE MD, DEEPANJALI, RES May 19, 2025 02:07 HALEY ARCE MD May 19, 2025 04:03
[2025-05-19 02:59] LABS: MEAN PLATELET VOLUME 7.9 FL (7.4-10.4); RED CELL DISTRIBUTION WIDTH 15.4 % (11.5-14.5)
[2025-05-19 03:11] LABS: CREATININE 0.96 MG/DL (0.60-1.10); TOTAL CARBON DIOXIDE 32.1 MMOL/L (24-32); eCRCL 68 ML/MIN; eGFR 76 ML/MIN
[2025-05-19] MEDS: piperacillin/tazo 3.375gm/50ml 50 ML IV SCH (07:06)
[2025-05-19] MEDS: docusate sod 100mg capsule PO SCH (07:12)
[2025-05-19] MEDS: pantoprazole 40mg Tablet.DR PO SCH (07:12)
[2025-05-19] MEDS: K and/or MAG REPLACEMENT MC SCH (07:13)
[2025-05-19] MEDS ORDERED: heparin, porcine 5000 units/ml vial SQ SCH (08:00)
--- NOTE | 2025-05-19 14:05 | PROGRESS NOTE ---
Daily Progress Note Providers to CC ~ Antibiotic Timeout Antibiotic Ordered?: Yes Subjective Patient has no new complaints. Reports feeling better. Objective Vital Signs Date Time Temp Pulse Resp B/P (MAP) Pulse Ox O2 Delivery O2 Flow Rate FiO2 05/19/25 11:00 97.6 76 14 146/67 (93) 98 Room Air 05/19/25 02:09 0 Result Diagram: 05/19/25 0246 05/19/25 0246 Gen. awake alert oriented asymptomatic HEENT: Normocephalic, atraumatic, extraocular movements are intact, sclera anicteric, conjunctiva pinkish, moist oral mucosa, no rash or ulcers. NECK: Supple, no JVD, trachea midline. CHEST: Clear to auscultation, no wheezes crackles or rhonchi. HEART: Regular rate rhythm, no murmur gallop or rub. ABDOMEN: Soft, nontender, no organomegaly. EXTREMITIES: No cyanosis clubbing or edema. NEURO EXAM: Grossly nonfocal. MUSCULOSKELETAL : No joint swelling or deformities. SKIN: No rash or ulcers noted. Other Results Medications reviewed Problem\Assessment\Plan This is a 75-year-old male patient with a past medical history of bladder cancer diagnosed in 2022 currently undergoing intra vesical radiotherapy presented to the hospital with complaints of worsening UTI symptoms since the last two days. He was recently admitted to the hospital on 05/01, and was treated with meropenem due to his allergy with the cephalexin and discharged home on PO Levaquin which he finished a few days ago. # Acute recurrent symptomatic UTI: Continue IV antibiotics.Previously treated with Levaquin and meropenem Bladder cancer currently undergoing therapy: Defer to outpatient follow up Continue tamsulosin after medication reconciliation # Atrial flutter: Rate controlled Continue Eliquis 5 mg b.i.d. after medication reconciliation On phototypesetting equipment monitor # Type 2 diabetes mellitus: History of, A1c on 05/11 was 4.7 off of metformin Currently on no medications Continue monitoring blood glucose in daily CMP # Hypothyroidism: Continue home medication of levothyroxine 100 mcg # Hyperlipidemia: Home medications of fenofibrate and atorvastatin Lines: PIV Code status: Full code DVT prophylaxis: Eliquis Diet: Regular GI prophylaxis: Protonix Date of Service: May 19, 2025 Billing Provider: ALEJANDRINA GARAY MD Common Visit Codes: [id number] INP/OBS CARE(HIGH) ALEJANDRINA GARAY MD May 19, 2025 14:05
[2025-05-20] VITALS (8 sets, daily range): BP systolic 126–167; BP diastolic 71–87; PULSE 46–103; RESP 14–25; TEMP 97.2–97.9; O2SAT 95–97
[2025-05-20 06:26] LABS: MEAN PLATELET VOLUME 7.8 FL (7.4-10.4); RED CELL DISTRIBUTION WIDTH 14.8 % (11.5-14.5)
[2025-05-20 06:58] LABS: CREATININE 0.87 MG/DL (0.60-1.10); TOTAL CARBON DIOXIDE 26.0 MMOL/L (24-32); eCRCL 75 ML/MIN; eGFR 85 ML/MIN
--- NOTE | 2025-05-20 13:57 | PROGRESS NOTE ---
Daily Progress Note Providers to CC ~ Antibiotic Timeout Antibiotic Ordered?: Yes Subjective No new complaints, patient is seen resting comfortably. Objective Vital Signs Date Time Temp Pulse Resp B/P (MAP) Pulse Ox O2 Delivery O2 Flow Rate FiO2 05/20/25 11:00 97.4 52 14 161/71 (101) 96 Room Air 05/20/25 08:36 0.0 Result Diagram: 05/20/25 0608 05/20/25 0608 Gen. awake alert oriented asymptomatic HEENT: Normocephalic, atraumatic, extraocular movements are intact, sclera anicteric, conjunctiva pinkish, moist oral mucosa, no rash or ulcers. NECK: Supple, no JVD, trachea midline. CHEST: Clear to auscultation, no wheezes crackles or rhonchi. HEART: Regular rate rhythm, no murmur gallop or rub. ABDOMEN: Soft, nontender, no organomegaly. EXTREMITIES: No cyanosis clubbing or edema. NEURO EXAM: Grossly nonfocal. MUSCULOSKELETAL : No joint swelling or deformities. SKIN: No rash or ulcers noted. Other Results Medications reviewed Problem\Assessment\Plan This is a 75-year-old male patient with a past medical history of bladder cancer diagnosed in 2022 currently undergoing intra vesical radiotherapy presented to the hospital with complaints of worsening UTI symptoms since the last two days. He was recently admitted to the hospital on 05/01, and was treated with meropenem due to his allergy with the cephalexin and discharged home on PO Levaquin which he finished a few days ago. # Acute recurrent symptomatic UTI: Continue IV antibiotics.Previously treated with Levaquin and meropenem .Urine culture positive for more than 100K colonies of Gram positive cocci # Bladder cancer currently undergoing therapy: Defer to outpatient follow up .Continue tamsulosin # Atrial flutter: Rate controlled Continue Eliquis 5 mg b.i.d. after medication reconciliation On school lunch monitor # Type 2 diabetes mellitus: History of, A1c on 05/11 was 4.7 off of metformin Currently on no medications Continue monitoring blood glucose in daily CMP # Hypothyroidism: Continue home medication of levothyroxine 100 mcg # Hyperlipidemia: Home medications of fenofibrate and atorvastatin Lines: PIV Code status: Full code DVT prophylaxis: Eliquis Diet: Regular GI prophylaxis: Protonix Disposition Likely home in am Date of Service: May 20, 2025 Billing Provider: ALEJANDRINA GARAY MD Common Visit Codes: [id number] INP/OBS CARE(MOD) ALEJANDRINA GARAY MD May 20, 2025 13:57
[2025-05-21] VITALS (9 sets, daily range): BP systolic 121–169; BP diastolic 73–104; PULSE 74–96; RESP 18–24; TEMP 96.7–98; O2SAT 96–99
[2025-05-21 06:33] LABS: MEAN PLATELET VOLUME 7.7 FL (7.4-10.4); RED CELL DISTRIBUTION WIDTH 14.9 % (11.5-14.5)
[2025-05-21 06:59] LABS: CREATININE 0.94 MG/DL (0.60-1.10); TOTAL CARBON DIOXIDE 24.2 MMOL/L (24-32); eCRCL 69 ML/MIN; eGFR 78 ML/MIN
[2025-05-21] MEDS: potassium Cl 20 mEq SR tablet PO PRN (08:05)
[2025-05-21] MEDS ORDERED: hydrALAZINE 20mg/ml inj. IV PRN (12:35)
--- NOTE | 2025-05-21 13:02 | ELECTROCARDIOGRAPH REPORT ---
[facility] Test Date: 2025-05-21 Test Time: 13:02:33 Pat Name: SAMY MURILLO Department: [facility] 3S [id number] Room: [place] [id number] B Gender: M Supervisor Treating And Pumping: : 1950 Requested By: ALEJANDRINA GARAY Order Number: [id number] Reading MD: Dr. SATHYA Wise Measurements Intervals [place] Rate: 114 P: 0 MO: 0 QRS: -5 QRSD: 83 T: 233 QT: 354 QTc: 488 Interpretive Statements Atrial flutter with variable block Paired ventricular premature complexes Abnormal R-wave progression, early transition Borderline repolarization abnormality Borderline ST elevation, inferior leads Electronically Signed On 05-21-2025 16:46:[address] SATHYA Wise Please click the below link to view image of tracing.
[2025-05-21] MEDS ORDERED: CHOL10006 PO (13:19)
[2025-05-21] MEDS ORDERED: SUCR1TAB PO (13:19)
[2025-05-21] MEDS: carvedilol 6.25mg tablet PO ONE (17:09)
--- NOTE | 2025-05-21 18:22 | PROGRESS NOTE ---
Daily Progress Note Providers to CC ~ Antibiotic Timeout Antibiotic Ordered?: No Subjective No new complaints, RN reports patient has uncontrolled HTN and abnormal rhythm patient reports he has previously seen Dr. Aparicio. Objective Vital Signs Date Time Temp Pulse Resp B/P (MAP) Pulse Ox O2 Delivery O2 Flow Rate FiO2 05/21/25 16:11 97 Room Air* 0 21 05/21/25 15:00 97.9 87 19 156/104 (121) Result Diagram: 05/21/25 0607 05/21/25 0607 Gen. awake alert oriented asymptomatic HEENT: Normocephalic, atraumatic, extraocular movements are intact, sclera anicteric, conjunctiva pinkish, moist oral mucosa, no rash or ulcers. NECK: Supple, no JVD, trachea midline. CHEST: Clear to auscultation, no wheezes crackles or rhonchi. HEART: Regular rate rhythm, no murmur gallop or rub. ABDOMEN: Soft, nontender, no organomegaly. EXTREMITIES: No cyanosis clubbing or edema. NEURO EXAM: Grossly nonfocal. MUSCULOSKELETAL : No joint swelling or deformities. SKIN: No rash or ulcers noted. Other Results Medications reviewed Problem\Assessment\Plan This is a 75-year-old male patient with a past medical history of bladder cancer diagnosed in 2022 currently undergoing intra vesical radiotherapy presented to the hospital with complaints of worsening UTI symptoms since the last two days. He was recently admitted to the hospital on 05/01, and was treated with meropenem due to his allergy with the cephalexin and discharged home on PO Levaquin which he finished a few days ago. # Acute recurrent symptomatic UTI: Continue IV antibiotics.Previously treated with Levaquin and meropenem .Urine culture positive for more than 100K colonies of Gram positive cocci # Bladder cancer currently undergoing therapy: Defer to outpatient follow up .Continue tamsulosin # Atrial flutter: Rate controlled Continue Eliquis. Consulted Cardiology. Patient was previously on Coreg which is not noted to be on his home medications. Await recommendations from Dr. Aparicio. 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 Date of Service: May 21, 2025 Billing Provider: ALEJANDRINA GARAY MD Common Visit Codes: [id number] INP/OBS CARE(HIGH) ALEJANDRINA GARAY MD May 21, 2025 18:22
[2025-05-21] MEDS: aspirin 81mg, enteric-coated 1 TAB TABLET.DR PO SCH (19:31)
[2025-05-21] MEDS: buPROPion SR 150mg tablet PO SCH (19:38)
[2025-05-21] MEDS: levoTHYROXINE 100mcg tablet PO SCH (23:29)
[2025-05-22] MEDS: carvedilol 6.25mg tablet PO ONE ×2 (01:21→01:22)
[2025-05-22 02:00] VITALS: BP 127/73; PULSE 72; RESP 17; TEMP 97.1; O2SAT 97
[2025-05-22 06:37] LABS: MEAN PLATELET VOLUME 7.9 FL (7.4-10.4); RED CELL DISTRIBUTION WIDTH 15.0 % (11.5-14.5)
--- NOTE | 2025-05-22 06:38 | ELECTROCARDIOGRAPH REPORT ---
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 Dodie Wasserman Measurements Intervals [place] Rate: 53 P: 0 CT: 0 QRS: -6 QRSD: 94 T: -58 QT: 499 QTc: 469 Interpretive Statements Atrial flutter Abnormal R-wave progression, early transition Nonspecific T abnormalities, inferior leads Electronically Signed On 05-22-2025 7:07:[address] Dodie Wasserman Please click the below link to view image of tracing.
[2025-05-22] MEDS: cholecalciferol (vitamin D3) 1,000 unit (25mcg) tablet PO SCH (07:52)
[2025-05-22] MEDS: carvedilol 6.25mg tablet PO SCH (07:52)
[2025-05-22] MEDS: cyanocobalamin 500mcg tablet PO SCH (07:53)
[2025-05-22 08:00] VITALS: RESP 15; O2SAT 94
[2025-05-22] MEDS ORDERED: non-formulary drug (Omeprazole 2 TAB) PO SCH (08:00)
[2025-05-22 08:16] LABS: TOTAL CARBON DIOXIDE 25.0 MMOL/L (24-32)
--- NOTE | 2025-05-22 08:20 | CONSULTATION ---
DATE OF CONSULTATION: 05/21/2025 DICTATING PHYSICIAN: SATHYA Wise MD CARDIOLOGY CONSULTATION REQUESTING PHYSICIAN: Dr. Rivas. IDENTIFICATION: A 75-year-old male with atrial flutter. HISTORY OF PRESENT ILLNESS: The patient is a 75-year-old male with history of diabetes, hypertension, hyperlipidemia, paroxysmal atrial fibrillation, and history of bladder cancer. The patient had been hospitalized on 05/18/2025 with urinary tract infection. There, he was found to be in atrial flutter. The patient has a history of bladder cancer diagnosed in 2022, seen here by Dr. Marquez. Subsequently, I spoke to [facility] from where he is getting intravesical BCG irrigation once a week for 6 weeks and off for 6 weeks. Apparently, he was hospitalized on 05/01/2025 with a UTI and was treated with meropenem due to his ALLERGY WITH CEPHALEXIN and discharged home with Levaquin, which he finished 3 days ago. His symptoms included dysuria, foul-smelling urine. The patient has a history of PAF since 2012. At that time, he was tried with Pradaxa and carvedilol. Subsequently, his anticoagulant has been changed to Eliquis. The patient is not able to recall when his carvedilol was discontinued. Apparently, the patient was also hospitalized with CVA 3 weeks ago with left-sided weakness at [facility]. He was hospitalized for 4 days. The patient apparently it was thought to be a TIA? The patient was last seen in my office in 2022. PAST MEDICAL HISTORY: * Hypertension. * Hyperlipidemia. * Diabetes. * Sleep apnea, on BiPAP, . * History of GI bleed. * History of TIA. * Other comorbidities include GERD; depression; bladder cancer, on chemotherapy; rheumatoid arthritis followed by [place] doctors in [place], BPH, osteoporosis, neuralgia and sciatica. PAST SURGICAL HISTORY: Back surgery in 2012, appendectomy, gallbladder removal. FAMILY HISTORY: Father at age 47. Mother at age 86. SOCIAL HISTORY: The patient is and he lives in [place] with his . 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 REVIEW OF SYSTEMS: HEENT: Wears glasses. Mild hearing impairment. RESPIRATORY: Exertional shortness of breath. MUSCULOSKELETAL: No DJD. PMO MANAGER: History of recent TIA. SKIN: None. ENDOCRINE: None. PHYSICAL EXAMINATION: GENERAL: The patient is conscious, alert, oriented, comfortable at rest. HEENT: Pupils are equal and reactive. Oral mucosa moist. VITAL SIGNS: Pulse 72, blood pressure 120/70, temperature 97.9. NECK: No JVD. Carotids equally well felt. CARDIAC: Irregularly irregular, variable S1, S2 normal. No S3, S4. LUNGS: Decreased breath sounds, bibasilarly. ABDOMEN: Soft. Bowel sounds present. EXTREMITIES: No edema, cyanosis or clubbing. PMO MANAGER: No lateralizing signs. LABORATORY DATA: From 05/18/2025: WBC 8, hemoglobin 14.5, platelets 125. Sodium 139, potassium 3.7, chloride 105, carbon dioxide 28.2, BUN 21, creatinine 0.89. ASSESSMENT AND PLAN: * A 75-year-old male with bladder cancer with recurrent UTI, being managed by Dr. Rivas. * History of PAF since 2012. The patient used to be on carvedilol at home. We will resume the same. We will put him on flecainide 50 mg p.o. b.i.d. Consider electrical cardioversion later on. * Diabetes, hypertension, and hyperlipidemia. Extensively counseled on coronary risk factor modification, keep A1c less than 7, LDL less than 55, systolic blood pressure less than 130 mmHg. * Obstructive sleep apnea, on CPAP. Other comorbidities include history of GI bleed, rheumatoid arthritis, GERD, osteoporosis, neuralgia, sciatica, BPH, GERD, depression, hypothyroidism, DJD of the back. SATHYA Wise MD TID: [id number] RECEIPT: [id number] JOSEP/DEVIN/JENNIFER [facility]
[2025-05-22 08:37] LABS: CREATININE 0.93 MG/DL (0.60-1.10); eCRCL 70 ML/MIN; eGFR 79 ML/MIN
[2025-05-22 09:30] VITALS: BP 114/78; PULSE 74; RESP 20; TEMP 96.5; O2SAT 97
[2025-05-22 11:00] VITALS: BP 118/75; PULSE 66; RESP 15; TEMP 97.5; O2SAT 95
[2025-05-22] MEDS: magnesium sulf-water 2g/50mL 50 ML IV ONE (11:46)
[2025-05-22] MEDS: Potassium Cl inj 40 MEQ in normal saline 500ml IV soln 500 ML IV ONE (11:46)
[2025-05-22] MEDS ORDERED: CARV3.12 PO (12:04)
[2025-05-22] MEDS ORDERED: CIPR-458 PO (12:06)
[2025-05-22] MEDS ORDERED: BUPR150T8 PO (12:07)
[2025-05-22] MEDS ORDERED: AMPI500C65 PO (12:09)
[2025-05-22] MEDS ORDERED: TAM50T PO (13:19)
[2025-05-22 15:00] VITALS: BP 134/65; PULSE 60; RESP 17; TEMP 97.4; O2SAT 99
--- NOTE | 2025-05-22 17:16 | PROGRESS NOTE ---
Progress Note Cardiology Providers to CC ~ Subjective Subjective Patient seen and examined before discharge today. Overall he is feeling well. No chest pain or shortness of breath. Objective Result Diagram: 05/22/2560705/22/25607 Objective General: Normal body habitus, no acute distress, HEENT: Sclerae clear, PERRL, gums without lesions or bleeding, oropharynx clear without erythema or exudate. Neck: Supple without enlargement of the thyroid, or lymphadenopathy, Chest: Normal size and shape, no tenderness, nonlabored breathing, Breath sounds clear to auscultation. Heart: Irregularly irregular, variable S1. Abdomen: Soft, nontender, no organomegaly, bowel sounds present. Extremities: No edema cyanosis or clubbing. Problem\Assessment\Plan Additional Plan 1. * A 75-year-old male with bladder cancer with recurrent UTI, being managed by Dr. Rivas. 2. * History of PAF since 2012. The patient used to be on carvedilol at home. We will resume the same. We will put him on flecainide 50 mg p.o. b.i.d. Consider electrical cardioversion later on as an outpatient. Carvedilol Reduced to 3.125 mg p.o. b.i.d. because of bradycardia. Hold carvedilol for heart rate less than 50. 3. * Diabetes, hypertension, and hyperlipidemia. Extensively counseled on coronary risk factor modification, keep A1c less than 7, LDL less than 55, systolic blood pressure less than 130 mmHg. The before * Obstructive sleep apnea, on CPAP. Other comorbidities include history of GI bleed, rheumatoid arthritis, GERD, osteoporosis, neuralgia, sciatica, BPH, GERD, depression, hypothyroidism, DJD of the back. ABHISHEK FUNG MD May 22, 2025 17:16
== END 2025-05-22 16:52 | disposition home health service (06) | DRG 690 ==
LOC: ER 20:14 → ED HOLD 23:54 → EDBEDREQ 05-19 02:51 → PCU 3S 05-19 03:00
PROVIDERS: ADMIT Internal Medicine; ATTEND Internal Medicine
DX: N30.00 Acute cystitis without hematuria (principal); I69.354 Hemiplegia and hemiparesis following cerebral infarction affecting left non-dominant side; M06.9 Rheumatoid arthritis, unspecified; I10 Essential (primary) hypertension; N40.0 Benign prostatic hyperplasia without lower urinary tract symptoms; G47.33 Obstructive sleep apnea (adult) (pediatric); C67.9 Malignant neoplasm of bladder, unspecified; E78.5 Hyperlipidemia, unspecified; I48.91 Unspecified atrial fibrillation; E11.9 Type 2 diabetes mellitus without complications; E03.9 Hypothyroidism, unspecified; F32.A Depression, unspecified; K21.9 Gastro-esophageal reflux disease without esophagitis; Z79.82 Long term (current) use of aspirin; Z79.899 Other long term (current) drug therapy; Z88.1 Allergy status to other antibiotic agents
CPT/HCPCS: 36415; 71045; 80048; 80076; 81001; 83605; 83735; 84145; 84443; 85025; 87040; 87077; 87081; 87088; 87186; 93005; 97116; 97161; 97530; 99285; A6258; G0378; J1956; J2543; J3480; J7030; J7040

== ENCOUNTER 2025-05-31 07:52 | Inpatient (IN) | payer OTHER, MEDICARE ==
[~2025-05-31] VITALS: Ht 177.8 cm; Wt 94.0 kg
[~2025-05-31 07:52] MED LIST changes: -ARA20T PO; +ASPI81TA52 PO; -ATOR20TA66 PO; +ATOR40TA PO; -BUPR-114 PO; +BUPR150T8 PO; -CARV-50 PO; +CARV3.12 PO; +CYAN-36 PO; -CYAN100082 PO; +FENO145T38 PO; -FINA5TAB PO; +GABA-1405 PO; -GABA300C PO; +HYDR-3965 PO; +LEVO100T9 PO; -LEVO125T8 PO; -LEVO750T68 PO; -LOSA50TA64 PO; +OMEP20TA43 PO; -PANT40TA54 PO; -POTA-207 PO; +SERT-434 PO; -SERT25TA84 PO; +TAM50T PO; +TAMS-55 PO; -ZOLP-679 PO; +ZOLP5TAB8 PO
[2025-05-31] MEDS: CefTRIAXone 2gm/D5W 50ml BAG 50 ML IV ONE (08:25)
[2025-05-31] MEDS: ringers solution, lactated 1000ml IV soln IV ONE (08:25)
[2025-05-31 08:37] LABS: MEAN PLATELET VOLUME 7.7 FL (7.4-10.4); RED CELL DISTRIBUTION WIDTH 14.7 % (11.5-14.5)
--- NOTE | 2025-05-31 08:41 | RADIOLOGY REPORT ---
CHEST RADIOGRAPH Indication: Possible sepsis Technique: Single frontal view of the chest was obtained COMPARISON: DI CHEST,SINGLE VIEW on DOS: 05/18/25, DI CHEST,SINGLE VIEW on DOS: 05/01/25, CHEST,SINGLE V IEW on DOS: 06/16/22, CT CHEST on DOS: 04/02/21, CHEST,SINGLE VIEW on DOS: 04/02/21 FINDINGS: Lines and Tubes: None Lungs: Right basilar subsegmental atelectasis. Pleura: No effusion. No pneumothorax. Cardiomediastinal contours: Unremarkable Bones: Unremarkable IMPRESSION: Right basilar subsegmental atelectasis.
[2025-05-31 08:56] LABS: CREATININE 0.93 MG/DL (0.60-1.10); TOTAL CARBON DIOXIDE 30.6 MMOL/L (24-32); eCRCL 70 ML/MIN; eGFR 79 ML/MIN
[2025-05-31 09:43] LABS: LEUKOCYTE ESTERASE ,URINE NEGATIVE (Neg); NITRITES, URINE NEGATIVE (Neg); OCCULT BLOOD,URINE NEGATIVE (Neg)
[2025-05-31 09:44] LABS: UA COLLECTION TYPE CLN CATCH MIDSTREAM
--- NOTE | 2025-05-31 09:50 | Physician Documentation ---
History of Present Illness ~ Chief Complaint: Weakness Stated Complaint: WEAKNESS Time Seen by MD: 08:15 OK to notify your PCP?: Yes Primary Medical Doctor: Dr. Contreras Source: patient, EMS, EMS notes reviewed Mode of Arrival: EMS Exam Limitations: no limitations HPI Chief Complaint: Weakness Caveat: None Independent Historians: Paramedics History of Present Illness: Patient is a 75-year-old man brought in by paramedics from home because of increasing weakness that began two days ago. Patient has no other complaints. No fever. No nausea vomiting diarrhea. No chest pain, no shortness a breath, no cough, no abdominal pain. Review of systems: All systems were reviewed and are negative except for what is indicated in the history of present illness. Past Medical History: Paroxysmal Atrial Fibrillation, HTN, HLD, type 2 diabetes, BPH, GERD, obstructive sleep apnea, history of upper GI bleed, rheumatoid arthritis, DJD of the back, depression, hypothyroidism, bladder cancer Past Surgical History: Noncontributory Social History: , lives locally, no tobacco use, no alcohol use Medications: Reviewed as documented Nursing Notes Allergies: Reviewed as documented in Nursing Notes Medication Reconciliation Allergies: Coded Allergies: cephalexin (Verified Allergy, Intermediate, Itchyness, 05/31/25) Scheduled Apixaban (Eliquis), 1 TAB PO Q12H, (Reported) Aspirin (Aspirin EC), 1 TAB PO DAILY, (Reported) Atorvastatin Calcium* (Lipitor*), 1 TAB PO DAILY, (Reported) Bupropion Hcl SR* (Wellbutrin SR*), 1 TAB PO BID Carvedilol (Coreg), 1 TAB PO Q12H Cholecalciferol (Vitamin D), 1 CAP PO DAILY, (Reported) Cyanocobalamin (Vitamin B-12) (B-12), 1 TAB PO DAILY, (Reported) Fenofibrate Nanocrystallized* (Tricor*), 1 TAB PO QAM, (Reported) Flecainide Acetate (Tambocor), 50 MG PO Q12H Gabapentin (Gabapentin), 0.5 TAB PO TID, (Reported) Levothyroxine Sodium (Levothyroxine Sodium), 1 TAB PO DAILY, (Reported) Omeprazole (Omeprazole), 2 TAB PO QAM, (Reported) Sertraline HCl (Sertraline HCl), 1 TAB PO QAM, (Reported) Spironolactone (Spironolactone), 1 TAB PO HS, (Reported) Sucralfate (Sucralfate), 1 TAB PO Q8H, (Reported) Tamsulosin Hcl* (Flomax*), 1 CAP PO HS, (Reported) Scheduled PRN Hydrocodone Bit/Acetaminophen 5/325 MG ([place] 5/325 MG), 2 TAB PO BID PRN for pain, (Reported) Zolpidem Tartrate* (Ambien*), 1 TAB PO HS PRN for INSOMNIA, (Reported) Discontinued Medications Ampicillin Trihydrate (Ampicillin Trihydrate), 1 CAP PO Q8H Discontinued Reason: Auto Discontinued Past Medical History Past Medical History: Diabetes, Chronic Back Pain, Rheumatoid Arthritis Past Surgical History: orthopedic surgeries Patient History: FHx: congestive heart failure GRANDFATHER OR GRANDMOTHER, Onset:60 years & older FHx: melanoma FATHER, , Age: 40's - 50, Cause: Melanoma Alcohol Use: None Drug Use: none Lives with: Mother, Father, Spouse, Other Lives In: Home Review of Systems All Other Systems at this time: Reviewed and Negative ROS Patient denies any other acute symptoms other than above. All other systems are negative Physical Exam Vital Signs: RN Vital Signs have been reviewed: Yes, Temperature: 99.9, Source: Oral, Heart Rate: 85, Respiratory Rate: 18, BP: 158/88, Pulse Oximetry: 96, Weight: 94.000 Oxygen Flow Rate: 0 Pulse Oximetry Reflects: adequate oxygenation Physical Exam General Appearance: Mild distress, chronically ill-appearing, generally weak appearing HEENT: Normal OP, moist oral mucosa, PERRL, EOMI Neck: supple, normal ROM, trachea midline Pulmonary: No respiratory distress, CTA, BS equal Cardiac: Regularly irregular rhythm, normal rate, 2/6 systolic murmur, rub or gallop, GI: nondistended, soft, nontender, normal bowel sounds, no guarding, no rebound Extremities: normal ROM, no swelling, non-tender Skin: intact, dry, warm, no rashes Neuro: AAOx3, speech is clear, no focal motor weakness Psych: normal affect, good eye contact, no apparent hallucination, normal speech Progress Results/Orders Results/Orders Orders - MATTHEW WEAVER MD Culture Blood (05/31/25 08:05) Chest,Single View (05/31/25 08:16) Monitor (05/31/25 08:05) Oxygen (05/31/25 08:05) Saline Lock (05/31/25 08:05) Hs Troponin I W Calculations (05/31/25 12:52) Recheck Vital Signs (05/31/25 09:52) Gait Test (05/31/25 11:23) Page Hospitalist (05/31/25 12:09) Fill Out Med Reconciliation (05/31/25 12:09) Completed Orders - MATTHEW WEAVER MD Cbc/Diff (05/31/25 08:05) Urinalysis, Cult If Indicated (05/31/25 08:05) Chest,Single View (05/31/25 08:16) Procalcitonin (05/31/25 08:05) Lacticsepsis (05/31/25 08:05) Ceftriaxone 2gm/D5w 50ml Bag (Rocephin 2 (05/31/25 08:20) Ringers Solution, Lacted (Lactated Ringe (05/31/25 08:20) CMP (05/31/25 08:16) Lactic,2hr (05/31/25 10:18) PBNP (05/31/25 09:52) Hs Troponin I W Calculations (05/31/25 09:52) Hs Troponin I W Calculations (05/31/25 11:52) Medications Received in ER Medications (Trade) Dose Ordered Sig/Ycdney Route PRN Reason Start Time Stop Time Status Last Admin Dose Admin Ceftriaxone Sodium/Dextrose 50 ml @ 100 mls/hr ONCE ONCE IV 05/31/25 08:20 05/31/25 08:49 DC 05/31/25 08:25 100 MLS/HR (lactated ringers solution) 1,000 ml ONCE ONCE IV 05/31/25 08:20 05/31/25 08:21 DC 05/31/25 08:25 1,000 ML Vital Signs 05/31/25 05/31/25 05/31/25 05/31/25 07:55 08:10 08:53 09:46 Temp 99.9 Pulse 95 85 90 Resp 20 18 22 B/P (MAP) 158/88 158/88 (111) 153/90 (111) Pulse Ox 94 96 96 O2 Flow Rate 0 0 0 05/31/25 05/31/25 05/31/25 10:00 11:18 12:15 Pulse 92 95 89 Resp 22 19 17 B/P (MAP) 161/88 (112) 155/86 (109) 149/92 (111) Pulse Ox 95 95 96 O2 Flow Rate 0 0 0 Laboratory Tests Test 05/31/25 08:18 05/31/25 08:25 05/31/25 08:33 05/31/25 09:15 White Blood Count 8.3 Red Blood Count 4.10 L Hemoglobin 13.5 L Hematocrit 39.4 L Mean Corpuscular Volume 96.1 Mean Corpuscular Hemoglobin 32.9 H Mean Corpuscular Hemoglobin Concent 34.2 Red Cell Distribution Width 14.7 H Platelet Count 108 L Mean Platelet Volume 7.7 Neutrophils (%) (Auto) 87.3 H Lymphocytes (%) (Auto) 2.5 L Monocytes (%) (Auto) 9.0 Eosinophils (%) (Auto) 0.6 Basophils (%) (Auto) 0.6 Neutrophils # (Auto) 7.2 Lymphocytes # (Auto) 0.2 L Monocytes # (Auto) 0.7 Eosinophils # (Auto) 0.0 Basophils # (Auto) 0.0 CBC Comment Sodium Level 142 Potassium Level 3.6 Chloride Level 106 Carbon Dioxide Level 30.6 Anion Gap 5 L Blood Urea Nitrogen 13 Creatinine 0.93 Estimated GFR/1.73 m2 79 BUN/Creatinine Ratio 14.0 Glucose Level 99 Lactic Acid Level 2.4 H Calcium Level 9.3 Total Bilirubin 1.1 H Aspartate Amino Transf (AST/SGOT) 17 Alanine Aminotransferase (ALT/SGPT) 18 Alkaline Phosphatase 60 Total Protein 6.7 Albumin 3.6 Globulin 3.1 Albumin/Globulin Ratio 1.2 Chemistry Comments Procalcitonin 0.07 Troponin I High Sensitivity 11 Pro-B-Type Natriuretic Peptide 1110 H Urine Specimen Description Cln catch midstream Urine Color Yellow Urine Clarity Clear Urine pH 7.5 Urine Specific [place] 1.015 Urine Protein Negative Urine Glucose (UA) Negative Urine Ketones Negative Urine Occult Blood Negative Urine Nitrite Negative Urine Bilirubin Negative Urine Urobilinogen 0.2 Urine Leukocyte Esterase Negative Urine Culture Indicated Not ind Volume Urine Centrifuged 10 ml Urine Comment Test 05/31/25 10:44 05/31/25 12:16 Lactic Acid Level 2.4 H Troponin I High Sensitivity 11 Troponin I High Sens Percent Delta 0 Troponin I Hi Sens Absolute Change 0 Microbiology Date/Time Source Procedure Growth Status 05/31/25 08:33 Blood Hand Left Blood Culture - Preliminary NEGATIVE (LESS THAN 24 HOURS) Resulted Medical Decision Making Findings Differential diagnosis includes but is not limited to: Sepsis, urinary tract infection, dehydration, electrolyte abnormalities, acute kidney injury, pneumonia, acute coronary syndrome, cardiac dysrhythmia Chest x-ray, single view, indication: Weakness Independent interpretation: Lungs are clear, elevated right hemidiaphragm, normal mediastinum, normal cardiac silhouette. No acute cardiopulmonary process Laboratory data independent interpretation: CBC: Mild anemia with a hemoglobin of 13.5 and hematocrit 39.4. Moderate thrombocytopenia with platelet count of a 108 CMP: Unremarkable Lactic acid: 2.4, repeat lactic acid 2.4 Procalcitonin 0.07 1st troponin: Eleven Pro BNP: Urinalysis: Urine is clean, unremarkable Emergency department course/medical decision-making: Patient presents with generalized weakness. Patient is given 1 L of LR. Patient has had a recurrent urinary tract infections. That were is urinalysis here today is clean and unremarkable for infection. Patient does have a mild anemia. Patient has a normal white blood cell count. No evidence of pneumonia. Patient's vital signs have been stable. However the patient's so generally weak he is unable to stand without assistance or walk. Consultation/communications: 12:55 p.m.: Case discussed with the hospitalist Dr. Fortune. Departure Time of Disposition: 12:10 Disposition: 09 ADMITTED INPATIENT Admitted to Inpatient Unit: to hospitalist Admission Level of Care: Med/Surg Impression: Primary Impression: Generalized weakness Condition: Stable Education Educated: Patient, Family Educated regarding: diagnosis, treatment Signature Scribe Signature: No scribe Attestation: No scribe MATTHEW WEAVER MD May 31, 2025 09:50
[2025-05-31] MEDS ORDERED: magnesium sulf-water 4G/100mL 100 ML IV PRN (13:00)
[2025-05-31] MEDS ORDERED: HYDROcodone/acetaminophen 5mg/325mg tablet PO PRN (13:00)
[2025-05-31] MEDS ORDERED: magnesium Cl slow-release 64mg tablet PO PRN (13:00)
[2025-05-31] MEDS ORDERED: potassium Cl 20 mEq SR tablet PO PRN (13:00)
[2025-05-31] MEDS ORDERED: normal saline 1000ml 1,000 ML IV SCH (13:00)
[2025-05-31] MEDS ORDERED: bisacodyl 10mg suppository rectal RC PRN (13:00)
[2025-05-31] MEDS ORDERED: magnesium sulf-water 2g/50mL 50 ML IV PRN (13:00)
[2025-05-31] MEDS ORDERED: ondansetron/PF 4mg/2ml inj IV PRN (13:00)
[2025-05-31] MEDS ORDERED: potassium Cl 40MEQ/1/2NS 520ml 520 ML IV PRN (13:00)
[2025-05-31] MEDS ORDERED: magnesium hydroxide 30ml (MOM) UD suspension PO PRN (13:00)
[2025-05-31 18:00] VITALS: BP 154/85; PULSE 84; RESP 18; TEMP 98.9; O2SAT 97
--- NOTE | 2025-05-31 19:55 | HISTORY AND PHYSICAL ---
History & Physical Providers to CC ~ History of Present Illness Reason for Admit\Complaint: Generalized weakness History of Present Illness Patient is 75-year-old male recently discharged from the hospital on May 22, [address] Rivas. Patient is very poor historian unable to give me much reliable history. He has past medical history of bladder cancer diagnosed in 2022 , patient is currently not following any application specialist in was seen by application specialist in past in [place]. He received Levaquin and meropenem IV antibiotics for his recurrent symptomatic UTI in his last visit . Urine testing is done today which does not show any signs of acute UTI. Patient is feeling generalized weakness and that is the main reason for the visit. When I evaluated the patient his and daughter was present at bedside they mentioned that patient is DNR DNI but at the same time they want to treat the patient bladder cancer. No cancer treatment is done since January 2025 up until now. Patient is admitted for generalized weakness. Allergies: Coded Allergies: cephalexin (Verified Allergy, Intermediate, Itchyness, 05/31/25) Home Medications Home Medications Active Tambocor (Flecainide Acetate) 50 Mg Tablet 50 Mg PO Q12H 30 Days Wellbutrin SR* (Bupropion HCl) 150 Mg Tablet.sa 1 Tab PO BID 30 Days LOOK-ALIKE SOUND-ALIKE DRUG buSPIRone & buPROPion Coreg (Carvedilol) 3.125 Mg Tablet 1 Tab PO Q12H 30 Days Reported Sucralfate 1 Gram Tablet 1 Tab PO Q8H 30 Days Vitamin D (Cholecalciferol) 1,000 Unit Capsule 1 Cap PO DAILY 30 Days Gabapentin 600 Mg Tablet 0.5 Tab PO TID 30 Days Spironolactone 25 Mg Tablet 1 Tab PO HS 30 Days Sertraline HCl 100 Mg Tablet 1 Tab PO QAM 30 Days Ambien* (Zolpidem Tartrate) 5 Mg Tablet 1 Tab PO HS PRN Eliquis (Apixaban) 5 Mg Tablet 1 Tab PO Q12H 30 Days B-12 (Cyanocobalamin (Vitamin B-12)) 1,000 Mcg Tablet 1 Tab PO DAILY 30 Days Tricor* (Fenofibrate) 145 Mg Tablet 1 Tab PO QAM 30 Days Aspirin EC (Aspirin) 81 Mg Tablet.dr 1 Tab PO DAILY 30 Days [place] 5/325 MG (Acetaminophen/Hydrocodone Bitart) 5 Mg/325 Mg Tablet 2 Tab PO BID PRN 5 Days Flomax* (Tamsulosin HCl) 0.4 Mg Cap.sr.24h 1 Cap PO HS 30 Days Levothyroxine Sodium 100 Mcg Tablet 1 Tab PO DAILY 30 Days Omeprazole 20 Mg Tablet.dr 2 Tab PO QAM 30 Days Lipitor* (Atorvastatin Calcium) 40 Mg Tablet 1 Tab PO DAILY 30 Days Past Medical History Past Medical History Bladder cancer, History of recurrent UTI, history of paroxysmal atrial fibrillation since 2012 , Other comorbidities include diabetes hypertension hyperlipidemiaObstructive sleep apnea, on CPAP. history of GI bleed, rheumatoid arthritis, GERD, osteoporosis, neuralgia, sciatica, BPH, GERD, depression, hypothyroidism, DJD of the back. Past Surgical History Surgical History Comment Noncontributory Family History Family History: FHx: congestive heart failure GRANDFATHER OR GRANDMOTHER, Onset:60 years & older FHx: melanoma FATHER, , Age: 40's - 50, Cause: Melanoma Past Social History Social History Comment , lives with his , no tobacco use, no alcohol use ROS ROS Review of system as mentioned above in HPI rest of the review of system unremarkable patient's and daughter contributed to H&P Exam Vitals: Vital Signs Date Time Temp Pulse Resp B/P (MAP) Pulse Ox O2 Delivery O2 Flow Rate FiO2 05/31/25 14:15 88 19 148/90 (109) 97 0 05/31/25 07:55 99.9 General: General-patient not in any acute distress, awake, chronically ill-appearing, appear mildly lethargic HEENT-atraumatic normocephalic, neck supple without elevated JVD, no thyromegaly or carotid bruit. No lymphadenopathy bilaterally. Eyes-no icterus or pallor seen in eyes Chest- decreased to auscultation bilaterally, breathing nonlabored no tachypnea, no wheezing, no crepitation, no crackles. Heart-S1-S2 normal, regular heart rate no murmur Abdomen bowel sounds positive on auscultation, soft nondistended nontender no guarding, no rigidity Skin no active skin rash Neurology-grossly intact, nonfocal awake responded to verbal commands and cooperated during physical exam Extremity- no pedal edema able to move all 4 extremities Psychiatry - patient is not confused or agitated cooperated during physical examination Diagnostic Data Last Recorded Lab Results: 05/31/2518 05/31/25 0818 Advance Care Planning Advanced Care plannin - 30 Minutes Additional Plan # Patient is admitted for generalized weakness. Patient needs physical therapy evaluation and we will plan further # Bladder cancer-He has past medical history of bladder cancer diagnosed in 2022 , patient is currently not following any application specialist in was seen by application specialist in past in [place].No cancer treatment is done since January 2025 up until now. # History of recurrent UTI- Urine testing is done today which does not show any signs of acute UTI.He received Levaquin and meropenem IV antibiotics for his recurrent symptomatic UTI in his last visit . # Patient's other comorbidities include history of paroxysmal atrial fibrillation since 2012 he was placed on flecainide 50 mg b.i.d. by farm specialist in last visit. # Other comorbidities include diabetes hypertension hyperlipidemiaObstructive sleep apnea, on CPAP. Other comorbidities include history of GI bleed, rheumatoid arthritis, GERD, osteoporosis, neuralgia, sciatica, BPH, GERD, depression, hypothyroidism, DJD of the back. We will do home medication reconciliation for patient's home medication once updated in electronic medical record by nursing staff or pharmacist # Code status discussed with patient his and daughter at bedside they mentioned that patient is DNR DNI Patient's current condition is guarded patient needs help from manager of case in physical therapy team Date of Service: May 31, 2025 Billing Provider: KEMI FERREIRA MD Common Visit Codes: 53431-[id number] INP/OBS CARE (HIGH) Secondary Visit Codes: 98404-[id number] CARE PLAN 30 MINUTES KEMI FERREIRA MD May 31, 2025 19:55
[2025-05-31 20:00] VITALS: RESP 18; O2SAT 97
[2025-05-31] MEDS: heparin, porcine 5000 units/ml vial SQ SCH (20:35)
[2025-06-01] VITALS (20 sets, daily range): BP systolic 107–153; BP diastolic 58–88; PULSE 50–88; RESP 12–24; TEMP 97.5–98.5; O2SAT 90–97
[2025-06-01 05:17] LABS: CREATININE 0.85 MG/DL (0.60-1.10); TOTAL CARBON DIOXIDE 26.7 MMOL/L (24-32); eCRCL 76 ML/MIN; eGFR 88 ML/MIN
[2025-06-01 06:19] LABS: MEAN PLATELET VOLUME 7.9 FL (7.4-10.4); RED CELL DISTRIBUTION WIDTH 14.6 % (11.5-14.5)
[2025-06-01] MEDS: potassium Cl 20 mEq SR tablet PO PRN (09:45)
--- NOTE | 2025-06-01 17:04 | ELECTROCARDIOGRAPH REPORT ---
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 SATHYA Fung Measurements Intervals [place] Rate: 108 P: 0 AR: 0 QRS: 8 QRSD: 141 T: -87 QT: 361 QTc: 484 Interpretive Statements Atrial flutter Ventricular bigeminy IVCD, consider atypical RBBB LVH with secondary repolarization abnormality Electronically Signed On 06-01-2025 20:22:[address] SATHYA Fung Please click the below link to view image of tracing.
[2025-06-01] MEDS ORDERED: amiodarone 50MG/ML inj IV ONE (18:00)
[2025-06-01] MEDS ORDERED: GABA300C PO (18:48)
[2025-06-01] MEDS ORDERED: ROSU40TA89 PO (18:48)
[2025-06-01] MEDS ORDERED: FLEC50TA3 PO (18:48)
[2025-06-01] MEDS ORDERED: NITR100C6 PO (18:48)
[2025-06-01] MEDS ORDERED: CARV3.12 PO (18:48)
[2025-06-01] MEDS ORDERED: BUPR150T8 PO (18:48)
[2025-06-01] MEDS: amiodarone 150mg/dext, iso-os 100 ML IV ONE ×2 (19:26→20:31)
--- NOTE | 2025-06-01 19:30 | PROGRESS NOTE ---
Daily Progress Note Providers to CC ~ Antibiotic Timeout Antibiotic Ordered?: No Subjective Patient was seen this morning today he looked comfortable feeling better than yesterday. Later his and daughter came in later today concerned about his generalized weakness , they contacted Dr. Wise . Dr. Wise evaluated the patient today. As per Dr. iWse patient has atrial flutter and he wants to transfer the patient to PCU and wants to do the ablation procedure tonight. Dr. Chung does not feel that his cardiac flutter is the main reason for his generalized weakness. Objective Vital Signs Date Time Temp Pulse Resp B/P (MAP) Pulse Ox O2 Delivery O2 Flow Rate FiO2 06/01/25 19:15 98.5 59 14 06/01/25 10:00 132/74 (93) 95 Room Air 0.0 Result Diagram: 06/01/25 0503 06/01/25 0435 General-patient not in any acute distress, awake, chronically ill-appearing, appear mildly lethargic HEENT-atraumatic normocephalic, neck supple without elevated JVD, no thyromegaly or carotid bruit. No lymphadenopathy bilaterally. Eyes-no icterus or pallor seen in eyes Chest- decreased to auscultation bilaterally, breathing nonlabored no tachypnea, no wheezing, no crepitation, no crackles. Heart-S1-S2 normal, regular heart rate no murmur Abdomen bowel sounds positive on auscultation, soft nondistended nontender no guarding, no rigidity Skin no active skin rash Neurology-grossly intact, nonfocal awake responded to verbal commands and cooperated during physical exam Extremity- no pedal edema able to move all 4 extremities Psychiatry - patient is not confused or agitated cooperated during physical examination Problem\Assessment\Plan # Patient is admitted for generalized weakness. Patient needs physical therapy evaluation and we will plan further # Bladder cancer-He has past medical history of bladder cancer diagnosed in 2022 , patient is currently not following any administrative services specialist in was seen by administrative services specialist in past in [place].No cancer treatment is done since January 2025 up until now. # History of recurrent UTI- Urine testing is done today which does not show any signs of acute UTI.He received Levaquin and meropenem IV antibiotics for his recurrent symptomatic UTI in his last visit . # Patient's other comorbidities include history of paroxysmal atrial fibrillation since 2012 he was placed on flecainide 50 mg b.i.d. by creative services specialist in last visit. Dr. Wise evaluated the patient today. As per Dr. Wise patient has atrial flutter and he wants to transfer the patient to PCU and wants to do the ablation procedure tonight. # Other comorbidities include diabetes hypertension hyperlipidemiaObstructive sleep apnea, on CPAP. Other comorbidities include history of GI bleed, rheumatoid arthritis, GERD, osteoporosis, neuralgia, sciatica, BPH, GERD, depression, hypothyroidism, DJD of the back. We will do home medication reconciliation for patient's home medication once updated in electronic medical record by nursing staff or pharmacist # thrombocytopenia we will continue to monitor platelet counts # mild hypokalemia we will do the replacement of potassium as per protocol # Code status discussed with patient his and daughter at bedside they mentioned that patient is DNR DNI Patient's current condition is guarded patient needs help from case picker in physical therapy team. Date of Service: Jun 01, 2025 Billing Provider: KEMI FERREIRA MD Common Visit Codes: [id number] INP/OBS CARE(HIGH) KEMI FERREIRA MD Jun 01, 2025 19:30
[2025-06-01] MEDS: MIDAZolam 5mg/ml 2ml vial IV ONE (19:35)
[2025-06-01] MEDS: morphine 10mg/ml inj. IV ONE (19:36)
--- NOTE | 2025-06-01 20:09 | ELECTROCARDIOGRAPH REPORT ---
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 SATHYA Fung Measurements Intervals [place] Rate: 63 P: 85 [place]: 195 QRS: 27 QRSD: 85 T: 16 QT: 404 QTc: 414 Interpretive Statements Sinus rhythm Multiform ventricular premature complexes Abnormal R-wave progression, early transition Borderline T wave abnormalities Electronically Signed On 06-01-2025 20:22:[address] SATHYA Fung Please click the below link to view image of tracing.
[2025-06-01] MEDS: amiodarone/D5 360MG/200ML BAG 200 ML IV SCH (20:45)
--- NOTE | 2025-06-01 21:18 | CONSULTATION ---
DATE OF CONSULTATION: 06/01/2025 DICTATING PHYSICIAN: SATHYA Wise MD CARDIOLOGY CONSULT REQUESTING PHYSICIAN: Breanna Fortune MD REASON FOR EVALUATION: The patient is a 75-year-old male admitted to the hospital with weakness who was supposed to have planned electrical cardioversion in the next 1-2 weeks. The patient continues to be in atrial flutter. HISTORY OF PRESENT ILLNESS: The patient is a male with a history of diabetes, hypertension, hyperlipidemia, paroxysmal atrial fibrillation, currently in persistent atrial fibrillation, history of bladder cancer. The patient was recently hospitalized from 05/18/2025 to 05/22/2025. At that time, he had UTI, which was treated and he was sent home. The patient was seen in my office under schedule for electrical cardioversion after discussing risks, benefits and alternative options, however, the patient was feeling extremely tired and weak and was brought to the emergency room and was hospitalized. Generally, he ambulates around the house with walker, reports dyspnea while going up with NYHA dyspnea class II to III. The patient has a history of PAF since 2012. At that time, he was treated with Pradaxa and carvedilol. Subsequently, his anticoagulant has been changed to Eliquis. In the past, he used to be on the carvedilol, which was discontinued, but was restarted during his last hospitalization. The patient apparently has a TIA-like episode for which he was treated at [facility] about 4 weeks ago. PAST MEDICAL HISTORY: * Hypertension. * Hyperlipidemia. * Diabetes. * Obstructive sleep apnea, on BiPAP. * History of GI bleed. * History of TIA. * Other comorbidities include history of GERD, depression, history of bladder cancer, on chemotherapy, rheumatoid arthritis, followed by [facility] in [place], BPH, osteoporosis, neuralgia and sciatica. PAST SURGICAL HISTORY: Back surgery in 2013, appendectomy, gallbladder removal. FAMILY HISTORY: Father at age 47. Mother at age 86. SOCIAL HISTORY: The patient is , lives in [place] with his . 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 REVIEW OF SYSTEMS: HEENT: Wearing glasses. Mild hearing impairment. RESPIRATORY: Has exertional shortness of breath. MUSCULOSKELETAL: Arthralgias. CENTRAL NERVOUS SYSTEM: History of TIA present. PHYSICAL EXAMINATION: GENERAL: The patient is conscious, alert, oriented, comfortable at rest. VITAL SIGNS: Temperature 98.9, pulse 84, blood pressure 130/70. NECK: No JVD. CARDIAC: Irregularly irregular. Variable S1 and S2 normal. No S3 or S4. LUNGS: Decreased breath sounds bibasilarly. ABDOMEN: Soft. Bowel sounds present. EXTREMITIES: No edema, cyanosis or clubbing. CENTRAL NERVOUS SYSTEM: No lateralizing signs. LABORATORY DATA: WBC 7.4, hemoglobin 12.9, hematocrit 37.6, platelet count 116. Sodium 138, potassium 3.3, chloride 108, carbon dioxide 27, BUN 9, creatinine 0.85. ProBNP of 1130. EKG showed atrial flutter, controlled ventricular rhythm with PVCs. ASSESSMENT AND PLAN: * A 75-year-old male with paroxysmal atrial fibrillation, currently in flutter. The patient is on Eliquis and flecainide and carvedilol. Options of electric cardioversion on this admission, risks, benefits and alternative options discussed with the patient. The patient and his and his [id number] would like to proceed with the same. We will arrange for the same. * History of diastolic CHF, keep him euvolemic, titrate diuretics as required. * Diabetes, hypertension, hyperlipidemia. Extensively counseled on coronary risk factor modification to keep his hemoglobin A1c less than 7, LDL less than 55, systolic blood pressure less than 130 mmHg. * Obstructive sleep apnea, on BiPAP. * History of bladder cancer, on BCG irrigation, being followed at [facility] at [place]. * Other comorbidities include GI bleed, rheumatoid arthritis, osteoporosis, neuralgia, sciatica, BPH, GERD, depression, hypothyroidism, DJD of the back. SATHYA Wise MD TID: [id number] RECEIPT: [id number] BC/PAR/AMI cc: Brennan Dangelo DO MTDD
[2025-06-01] MEDS: carvedilol 6.25mg tablet PO SCH (21:20)
[2025-06-02] VITALS (10 sets, daily range): BP systolic 114–144; BP diastolic 63–80; PULSE 59–70; RESP 10–15; TEMP 97.3–97.7; O2SAT 97
[2025-06-02 08:10] LABS: MEAN PLATELET VOLUME 8.0 FL (7.4-10.4); RED CELL DISTRIBUTION WIDTH 15.1 % (11.5-14.5)
[2025-06-02 08:15] LABS: CREATININE 1.12 MG/DL (0.60-1.10); TOTAL CARBON DIOXIDE 31.0 MMOL/L (24-32); eCRCL 58 ML/MIN; eGFR 64 ML/MIN
[2025-06-02 09:13] LABS: EOSINOPHILS % (MANUAL) 4.0 % (0-6); LYMPHOCYTES % (MANUAL) 16.0 % (21-51); MONOCYTES % (MANUAL) 16.0 % (2-12); NEUTROPHILS % (MANUAL) 64.0 % (42-75); PLATELET ESTIMATE DECREASED
--- NOTE | 2025-06-02 10:48 | ELECTROCARDIOGRAPH REPORT ---
[facility] Test Date: 2025-06-02 Test Time: 09:18:09 Pat Name: SAMY MURILLO Department: [facility] Patient ID: [id number] Room: [place] [id number] A Gender: M Last Inserter: TERESITA : 1950 Requested By: ABHISHEK FUNG Order Number: [id number] Reading MD: Dr. Dodie Wasserman Measurements Intervals [place] Rate: 59 P: -24 SC: 197 QRS: 13 QRSD: 97 T: 20 QT: 558 QTc: 553 Interpretive Statements Sinus rhythm Supraventricular bigeminy Prolonged QT interval Electronically Signed On 06-03-2025 19:40:[address] Dodie Wasserman Please click the below link to view image of tracing.
[2025-06-02] MEDS ORDERED: CARV6.253 PO (11:29)
[2025-06-02] MEDS ORDERED: AMIO200T73 PO (11:43)
--- NOTE | 2025-06-02 13:58 | DISCHARGE SUMMARY ---
Discharge Summary Providers to CC ~ Discharge Summary Admission Diagnosis: Was weakness, history of CHF, Afib Hospital Course DATE OF ADMISSION: May 31, 2025 DATE OF DISCHARGE: June 02, 2025 CBC testing done on June 02, 2025 WBC 6.4 hemoglobin 13.2 hematocrit 38.7 platelet count 111. Serum chemistry done on June 02, 2024 sodium 141 potassium 3.4 creatinine 1.12 GFR 62 normal troponin, BNP 1110, blood culture showed no growth after two days, urine testing unremarkable for any UTI CHEST,SINGLE VIEWIMPRESSION: Right basilar subsegmental atelectasis. Discharge Diagnosis\Comment: generalized weakness secondary to multiple comorbidities and bladder cancer, bladder cancer, history of recurrent UTI,history of paroxysmal atrial fibrillation, atrial flutter, diabetes hypertension hyperlipidemiaObstructive sleep apnea, on CPAP. Other comorbidities include history of GI bleed, rheumatoid arthritis, GERD, osteoporosis, neuralgia, sciatica, BPH, GERD, depression, hypothyroidism, DJD of the back, thrombocytopenia Operations\Procedures: Cardiac ablation Consultants: Dr. Wise Complications: none Condition on DC: Stable New Medications: Amiodarone HCl (Amiodarone HCl) 200 Mg Tablet 1 TAB PO BID for 30 Days, #60 TAB 0 Refills Carvedilol (Carvedilol) 6.25 Mg Tablet 6.25 MG PO BID for 30 Days, #60 TAB Continued Medications: Apixaban (Eliquis) 5 Mg Tablet 1 TAB PO Q12H for 30 Days, #60 TAB 0 Refills Aspirin (Aspirin EC) 81 Mg Tablet.dr 1 TAB PO DAILY for 30 Days, #30 TAB Bupropion Hcl SR* (Wellbutrin SR*) 150 Mg Tablet.sa 1 TAB PO BID, TAB LOOK-ALIKE SOUND-ALIKE DRUG buSPIRone & buPROPion Cholecalciferol (Vitamin D) 1,000 Unit Capsule 1 CAP PO DAILY for 30 Days, #30 CAP 0 Refills Cyanocobalamin (Vitamin B-12) (B-12) 1,000 Mcg Tablet 1 TAB PO DAILY for 30 Days, #30 TAB 0 Refills Fenofibrate Nanocrystallized* (Tricor*) 145 Mg Tablet 1 TAB PO QAM for 30 Days, #30 TAB Gabapentin (Neurontin) 300 Mg Capsule 1 CAP PO TID, CAP 0 Refills Hydrocodone Bit/Acetaminophen 5/325 MG ([place] 5/325 MG) 5 Mg/325 Mg Tablet 2 TAB PO BID PRN for pain for 5 Days, #10 TAB Levothyroxine Sodium (Levothyroxine Sodium) 100 Mcg Tablet 1 TAB PO DAILY for 30 Days, #30 TAB 0 Refills Nitrofurantoin Monohyd/M-Cryst (Macrobid 100 mg Capsule) 100 Mg Capsule 1 CAP PO Q12H, CAP 0 Refills PT STARTED 05/29/25 FOR 30 DAYS PER PMD FOR UTI Omeprazole (Omeprazole) 20 Mg Tablet.dr 2 TAB PO QAM for 30 Days, #30 TAB 0 Refills Rosuvastatin Calcium (Rosuvastatin Calcium) 40 Mg Tablet 1 TAB PO DAILY for high cholesterol, TAB 0 Refills Sertraline HCl (Sertraline HCl) 100 Mg Tablet 1 TAB PO QAM for 30 Days, #30 TAB 0 Refills Spironolactone (Spironolactone) 25 Mg Tablet 1 TAB PO HS for 30 Days, #30 TAB 0 Refills Sucralfate (Sucralfate) 1 Gram Tablet 1 TAB PO Q8H, TAB 0 Refills PT STARTED 05/05/25 FOR 30 DAYS Tamsulosin Hcl* (Flomax*) 0.4 Mg Cap.sr.24h 1 CAP PO HS for 30 Days, #30 CAP Zolpidem Tartrate* (Ambien*) 5 Mg Tablet 1 TAB PO HS PRN for INSOMNIA, TAB Discontinued Medications: Carvedilol (Coreg) 3.125 Mg Tablet 1 TAB PO Q12H, TAB Flecainide Acetate (Flecainide Acetate) 50 Mg Tablet 1 TAB PO Q12H, TAB 0 Refills Sucralfate (Sucralfate) 1 Gram Tablet 1 TAB PO Q8H for 30 Days, #90 TAB 0 Refills Discharge Summary: # Patient is admitted for generalized weakness. Patient had physical therapy evaluation done during hospitalization # Bladder cancer-He has past medical history of bladder cancer diagnosed in 2022 , patient is currently not following any nuclear weapons specialist in was seen by nuclear weapons specialist in past in [place].No cancer treatment is done since January 2025 up until now as per daughter and his . # History of recurrent UTI- Urine testing is done today which does not show any signs of acute UTI.He received Levaquin and meropenem IV antibiotics for his recurrent symptomatic UTI in his last visit . # Patient's other comorbidities include history of paroxysmal atrial fibrillation since 2012 he was placed on flecainide 50 mg b.i.d. by compliance review specialist in last visit. Dr. Wise evaluated the patient in Cardiology consultation reviewed, followed the recommendation. As per Dr. Wise patient has atrial flutter and he had ablation procedure done June 01, 2025 # Other comorbidities include diabetes hypertension hyperlipidemiaObstructive sleep apnea, on CPAP. Other comorbidities include history of GI bleed, rheumatoid arthritis, GERD, osteoporosis, neuralgia, sciatica, BPH, GERD, depression, hypothyroidism, DJD of the back. We will do home medication reconci liation for patient's home medication once updated in electronic medical record by nursing staff or pharmacist # thrombocytopenia we continued to monitor platelet counts # mild hypokalemia we did the replacement of potassium as per protocol # Code status discussed with patient his and daughter at bedside they mentioned that patient is DNR DNI Patient is feeling better he has been afebrile and getting discharged home in stable condition. Patient participated with physical therapy and able to ambulate with walker. Patient is seen and examined on the day of discharge. All labs, diagnostic workup and discharge plan discussed with patient and family members during hospitalization. All questions and queries answered to the best of my professional medical knowledge. I heard patient's concerns and address appropriately. Discharge instructions provided to the patient. Patient needs follow-up with his [place] primary care doctor and get the referral to nuclear weapons specialist for his bladder cancer for further management. Activity as tolerated please provide fall precautions document. Patient needs to read side effects of all his medication and discussed with PCP. Continue follow-up with compliance review specialist Dr Wise in 1 month. Amiodarone HCL 200 mg twice a day for 2 weeks. After 2 weeks, 200 mg once a day. Contact Dr. Wise for refills. General-patient not in any acute distress, awake, chronically ill-appearing HEENT-atraumatic normocephalic, neck supple without elevated JVD, no thyromegaly or carotid bruit. No lymphadenopathy bilaterally. Eyes-no icterus or pallor seen in eyes Chest- clear to auscultation bilaterally, breathing nonlabored no tachypnea, no wheezing, no crepitation, no crackles. Heart-S1-S2 normal, regular heart rate no murmur Abdomen bowel sounds positive on auscultation, soft nondistended nontender no guarding, no rigidity Skin no active skin rash Neurology-grossly intact, nonfocal awake responded to verbal commands and cooperated during physical exam Extremity- no pedal edema able to move all 4 extremities Psychiatry - patient is not confused or agitated cooperated during physical examination *Problems/Diagnosis: (1) Generalized weakness Status: Acute Total Time Spent on D/C: > 30 Minutes Date of Service: Jun 02, 2025 Billing Provider: KEMI FERREIRA MD Common Visit Codes: 60004-DUO/OBS DISCH DAY >30min KEMI FERREIRA MD Jun 02, 2025 13:57
--- NOTE | 2025-06-20 10:16 | CARDIOLOGY REPORT ---
DATE OF SERVICE: 06/01/2025 DICTATING PHYSICIAN: SATHYA Wise MD ELECTRICAL CARDIOVERSION PRIMARY PHYSICIAN: Dr. Mensah at [facility]. INDICATION: The patient is a 75-year-old male with diabetes, hypertension, hyperlipidemia, bladder cancer, on BCG therapy, BCG irrigations, was hospitalized. He used to have paroxysmal atrial fibrillation, which has become persistent. After discussing risks, benefits, and alternative options, the patient is undergoing electrical cardioversion. Risks, benefits and alternative options discussed and informed consent obtained. The patient is already on Eliquis, carvedilol. DESCRIPTION OF PROCEDURE: Anterior and posterior patch was used. Using biophysical electrical energy 150 joules x 1 converted to normal sinus rhythm. The patient had persistent frequent PACs and PVCs. Hence, he put him on IV amiodarone bolus followed the infusion protocol and his flecainide was changed to p.o. amiodarone. The patient is to start p.o. amiodarone 200 mg p.o. b.i.d. for 1 week followed by 200 mg once a day and EKG in one week. IMPRESSION: A 75-year-old male with persistent atrial flutter, converted to normal sinus rhythm. Continue amiodarone, Eliquis and carvedilol. SATHYA Wise MD TID: [id number] RECEIPT: [id number] JOSEP/SARA/JENNIFER cc: Rodrick
== END 2025-06-02 14:05 | disposition home health service (06) | DRG 309 ==
LOC: ER 07:52 → ED HOLD 13:03 → SUR 3N 17:37 → PCU 3S 06-01 19:10
PROVIDERS: ADMIT Internal Medicine; ATTEND Internal Medicine
PROC: 5A2204Z Restoration of Cardiac Rhythm, Single (ICD-10-PCS; principal; 2025-06-01)
DX: I48.92 Unspecified atrial flutter (principal); I50.32 Chronic diastolic (congestive) heart failure; D69.6 Thrombocytopenia, unspecified; E87.6 Hypokalemia; E03.9 Hypothyroidism, unspecified; G47.33 Obstructive sleep apnea (adult) (pediatric); G89.29 Other chronic pain; M54.9 Dorsalgia, unspecified; N40.0 Benign prostatic hyperplasia without lower urinary tract symptoms; I11.0 Hypertensive heart disease with heart failure; E11.9 Type 2 diabetes mellitus without complications; E78.5 Hyperlipidemia, unspecified; Z66 Do not resuscitate; I48.19 Other persistent atrial fibrillation; Z79.01 Long term (current) use of anticoagulants; Z80.8 Family history of malignant neoplasm of other organs or systems; Z82.49 Family history of ischemic heart disease and other diseases of the circulatory system; Z85.51 Personal history of malignant neoplasm of bladder; Z86.73 Personal history of transient ischemic attack (TIA), and cerebral infarction without residual deficits; Z79.899 Other long term (current) drug therapy; Z87.440 Personal history of urinary (tract) infections; Z88.1 Allergy status to other antibiotic agents; Z63.4 Disappearance and death of family member; Z88.8 Allergy status to other drugs, medicaments and biological substances
CPT/HCPCS: 36415; 71045; 80053; 81003; 83605; 83880; 84145; 84484; 85007; 85025; 87040; 87081; 93005; 94760; 96365; 97161; 97530; 99285; A4620; A6590; G0378; J0282; J0696; J1644; J1938; J2250; J2274; J7030; J7120